=== PATIENT | male | born 1965 | race Caucasian/White ===

== ENCOUNTER 2020-09-10 06:27 | Outpatient (REF) | payer OTHER, SELFPAY ==
[2020-09-10 07:26] LABS: MANUAL DIFF FLAG NO
[2020-09-10 07:42] LABS: Basophils Percent Auto 0.7 % (0-2); Eosinophils Absolute Auto 0.2 X10*3/uL (0.0-0.4); Eosinophils Percent Auto 3.5 % (0-4); Hematocrit 46.2 % (42-52); Hemoglobin 15.7 g/dl (14.0-18.0); Imm Gran Abs Auto 0.01 X10*3/uL (0.00-0.03); Imm Gran Pct Auto 0.2 % (0.0-0.4); Lymphocytes Absolute Auto 1.9 X10*3/uL (1.2-4.9); Lymphocytes Percent Auto 34.9 % (20-40); Mean Corpuscular Hemoglobin 31.9 pg (27.0-33.0); Mean Corpuscular Volume 93.9 fL (80-98); Mean Platelet Volume 9.7 fL (9.4-12.4); Monocytes Absolute Auto 0.8 X10*3/uL (0.1-1.2); Monocytes Percent Auto 13.9 % (2-11); Neutrophils Absolute Auto 2.6 X10*3/uL (2.0-8.3); Neutrophils Percent Auto 46.8 % (45-73); Platelet Count 315 X10*3/uL (160-400); Red Blood Count 4.92 X10*6/uL (4.60-5.80); Red Cell Distribution Width 11.9 % (11.0-16.0); White Blood Count 5.5 X10*3/uL (4.8-10.8)
[2020-09-10 08:03] LABS: Alanine Aminotransferase 36 U/L (0-40); Albumin Level 4.4 g/dL (3.5-5.0); Alkaline Phosphatase 79 U/L (39-117); Anion Gap 12 (12-20); Aspartate Amino Transferase 24 U/L (5-37); Bilirubin Total 0.6 mg/dL (0.0-1.0); Blood Urea Nitrogen 15 mg/dL (9-16); Calcium 9.3 mg/dL (8.4-10.2); Carbon Dioxide 29 mmol/L (22-29); Chloride 102 mmol/L (96-108); Cholesterol 227 mg/dL; Estimated Glomerular Filt Rate > 60; Glucose Fasting 96 mg/dL (60-99); HDL Cholesterol 46 mg/dL; LDL Cholesterol Calculated 164 mg/dl; Sodium 138 mmol/L (135-145); Total Protein 7.8 g/dL (6.5-8.0); Triglycerides 87 mg/dL
[2020-09-10 08:23] LABS: TSH reflex Free T4 3.42 mIU/mL (0.32-4.0)
[2020-09-10 08:47] LABS: Estimated Average Glucose 108 mg/dL; Hemoglobin A1c % 5.4 %
[2020-09-10 10:08] LABS: SARS COV2 IgG Negative (Negative)
== END 2020-09-10 06:28 | disposition home or self-care (01) ==
LOC: HO.LAB 06:27
PROVIDERS: Visit Provider Physician Assistant
DX: Z20.822 Contact with and (suspected) exposure to COVID-19 (principal)
CPT/HCPCS: 36415; 80053; 80061; 83036; 84443; 85025; 86769

== ENCOUNTER → 2021-09-08 13:22 | Outpatient (BNVA) | payer OTHER, SELFPAY | PROVIDERS: PCP Physician Assistant; Visit Provider Physician Assistant | DX: S49.82XA Other specified injuries of left shoulder and upper arm, initial encounter (principal); W18.30XA Fall on same level, unspecified, initial encounter | CPT/HCPCS: 99203 ==

== ENCOUNTER → 2021-09-14 10:35 | Outpatient (BNVA) | payer OTHER, SELFPAY | PROVIDERS: PCP Physician Assistant; Visit Provider Physician Assistant Medical | DX: S46.912A Strain of unspecified muscle, fascia and tendon at shoulder and upper arm level, left arm, initial encounter (principal); W18.30XA Fall on same level, unspecified, initial encounter; Z96.642 Presence of left artificial hip joint | CPT/HCPCS: 73030; 99203 ==

== ENCOUNTER → 2021-09-20 11:06 | Outpatient (BNVA) | payer OTHER, SELFPAY | PROVIDERS: PCP Physician Assistant; Visit Provider Physician Assistant Medical | DX: S46.212A Strain of muscle, fascia and tendon of other parts of biceps, left arm, initial encounter (principal); W18.30XA Fall on same level, unspecified, initial encounter | CPT/HCPCS: 99213 ==

== ENCOUNTER 2021-10-01 08:33 | Outpatient (REF) | payer OTHER, SELFPAY ==
--- NOTE | ~2021-10-01 | MR_ITS ---
EXAMINATION: MRI LEFT SHOULDER WITHOUT CONTRAST CLINICAL INFORMATION: Lifting injury. Assess biceps tendon. COMPARISON: Radiographs 09/14/2021. TECHNIQUE: MRI of the shoulder without contrast is performed on a 1.5 Ghislaine high-field scanner. FINDINGS: ROTATOR CUFF: Full-thickness tearing involves the majority of the supraspinatus tendon with some posteriormost fibers remaining intact. Portions of the tendon anteriorly are retracted to the level of the humeral head apex. Infraspinatus tendinosis. There is interstitial and bursal surface partial tearing of the distal subscapularis tendon. No muscle atrophy or fatty infiltration. BICEPS: Longitudinal partial tearing of the proximal biceps tendon as it drapes over the lesser tuberosity. CORACOACROMIAL ARCH: The undersurface of the acromion is curved with mild lateral subacromial spurring. Mild hypertrophic acromioclavicular osteoarthritis. LABRUM/CAPSULE: Ill-defined degenerative undersurface partial tearing of the posterior superior labrum. GLENOHUMERAL JOINT/MARROW: Moderate glenohumeral joint effusion with synovitis and debris extending into the subcoracoid bursa and biceps tendon sheath. Degenerative spurring along the greater tuberosity. ADDITIONAL FINDINGS: None. MR/MR shoulder LT wo con IMPRESSION: Near-complete tearing of the supraspinatus tendon as described. Interstitial/bursal surface partial tearing of the distal subscapularis tendon. A narrow coracohumeral distance may indicate subcoracoid impingement. Il-defined undersurface partial tearing of the proximal biceps tendon. Ill-defined degenerative undersurface tearing of the posterior superior labrum. Moderate joint effusion with mild synovitis/debris.
== END 2021-10-01 08:34 | disposition home or self-care (01) ==
LOC: HO.MRI 08:33
PROVIDERS: Visit Provider Internal Medicine
DX: M25.512 Pain in left shoulder (principal)
CPT/HCPCS: 73221

== ENCOUNTER 2021-10-04 11:00 | Outpatient (RCR) | payer OTHER, SELFPAY ==
--- NOTE | 2021-09-27 18:31 | MHC.PT.EP ---
[facility] [place] [facility] [place] [facility] [place] [facility] [address] Shaka Espinoza [address] [phone] F: [phone] F: [phone] F: [phone] F: [phone] Physical Therapy Plan of Care Date of Evaluation: Date of Surgery: N/A Diagnosis: L biceps injury Assessment: Pt is a 55yo M who presents to PT s/p falling on ice 09/08/21. Xrays are negative for fracture, and he is scheduled for an MRI this Monday. He presents today with current impairments in pain, decreased L shoulder ROM, and impaired posture. He continues to have good strength throughout L shoulder however it is slightly decreased compared to his R. He had a (+) Speed's on L UE. He is limited functionally by reaching, lifting, and overhead ADLs. He is a good candidate for skilled PT services in order to address current impairments in order to facilitate return to PLOF. 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 Manual therapy to restore motion and function. Therapeutic exercise to improve strength and flexibility. Neuromuscular re-education for posture and balance. Therapeutic activities to return to functional activities of daily living. Electronically signed by: Humaira Moran, PT, DPT Please sign and return to therapist. Thank you for your referral.
--- NOTE | 2021-10-11 10:27 | MHC.PT.DC ---
[facility] [place] [facility] [place] [facility] [place] [facility] [address] Shaka Espinoza [address] [phone] F: [phone] F: [phone] F: [phone] F: [phone] Physical Therapy Discharge Report Diagnosis: L biceps injury Date of Surgery: N/A Date of Evaluation: 09/27/21 Date of Discharge: 10/11/21 Treatments to Date: 3 Cancellations to Date: No Shows to Date: Discharge Status: Patient Elected to Stop Discharge Summary: Pt attended PT from 09/27/21-10/04/21. Pt had MRI of L shoulder which revealed tear of supraspintatus, subscap, and proximal biceps tendon. Pt had appointment with work connection on 10/05/21. [facility] connection called [facility] receptionist scheduler and reported pt is getting surgery on L shoulder. Pt is being D/C from skilled PT at this time. Electronically signed by: Humaira Moran, PT, DPT Please sign and return to therapist. Thank you for your referral.
== END 2021-10-11 10:27 | disposition home or self-care (01) ==
LOC: HO.PT 11:00
PROVIDERS: PCP Physician Assistant; Visit Provider Physician Assistant Medical
DX: S46.202D Unspecified injury of muscle, fascia and tendon of other parts of biceps, left arm, subsequent encounter (principal)
CPT/HCPCS: 97110; 97162

== ENCOUNTER → 2021-10-05 10:36 | Outpatient (BNVA) | payer OTHER, SELFPAY | PROVIDERS: PCP Physician Assistant; Visit Provider Physician Assistant Medical | DX: S46.212D Strain of muscle, fascia and tendon of other parts of biceps, left arm, subsequent encounter (principal); X58.XXXD Exposure to other specified factors, subsequent encounter | CPT/HCPCS: 99213 ==

== ENCOUNTER 2022-02-09 06:33 | Day surgery (SDC) | payer OTHER, SELFPAY ==
[2022-02-04 10:16] VITALS: BMI 32.9
--- NOTE | 2022-02-08 11:58 | HO.ANESPROP2 ---
Documented by User: Roseanne Mary NP 02/08/22 11:58 HPI - Anesthesia Eval Consult details Narrative: 56yo M for Colonoscopy [facility] Active Problems Active Problems: All Active Problems (Updated 02/04/22 @ 10:14 by Safia Cox, RN) Screening for diabetes mellitus (DM) (Acute) Screening for hypothyroidism (Acute) Screening for hypercholesterolemia (Acute) Exposure to COVID-19 virus (Acute) Past Medical History Medical History (Updated 02/04/22 @ 10:14 by Safia Cox RN) Elevated cholesterol History of diverticulitis Family History Family History (Updated 06/10/20 @ 09:22 by RONALD Hager) Father Colon cancer CVD (cardiovascular disease) Myocardial infarction S/P triple vessel bypass Mother History of breast cancer Brother Myocardial infarction Surgical History Surgical History (Updated 02/04/22 @ 10:16 by Safia Cox RN) History of nasal surgery History of repair of left rotator cuff History of total right hip replacement Hx of colonoscopy Hx of rectal polypectomy Social History Social History Patient Tobacco Use Status: Never used Tobacco Are you DNR?: No Advance Directives: No Advance Directives Information Provided: Yes Meds Allergies Allergy/AdvReac Type Severity Reaction Status Date / Time No Known Allergies Allergy Mild NOT Verified 02/04/22 10:16 APPLICABLE Home Medications Medication Instructions Recorded Confirmed Last Taken Type No Known Home Meds 02/04/22 02/04/22 Unknown History Exam Exam Date and Time: February 08, 2022 1158 Height,Weight and Vital Signs: Height 5 ft 11.6 in Weight 108.862 kg Assessment and Plan Assessment Anesthesia Assessment: Chart Reviewed Documented by User: Cheryl Ballard MD 02/09/22 07:19 [facility] Past Medical History Medical History (Updated 02/04/22 @ 10:14 by Safia Cox RN) Elevated cholesterol History of diverticulitis Family History Family History (Updated 06/10/20 @ 09:22 by RONALD Hager) Father Colon cancer CVD (cardiovascular disease) Myocardial infarction S/P triple vessel bypass Mother History of breast cancer Brother Myocardial infarction Family history of problems with anesthesia: No Surgical History Surgical History (Updated 02/04/22 @ 10:16 by Safia Cox RN) History of nasal surgery History of repair of left rotator cuff History of total right hip replacement Hx of colonoscopy Hx of rectal polypectomy History of Problems with Anesthesia: No Social History Social History Patient Tobacco Use Status: Never used Tobacco Are you DNR?: No Advance Directives: No Advance Directives Information Provided: Yes Meds Allergies Allergy/AdvReac Type Severity Reaction Status Date / Time No Known Allergies Allergy Mild NOT Verified 02/04/22 10:16 APPLICABLE Home Medications Medication Instructions Recorded Confirmed Last Taken Type No Known Home Meds 02/04/22 02/04/22 Unknown History Exam Airway Mallampati Class: II TM Dist: >3cm Neck ROM: Full Assessment and Plan Assessment Anesthesia Assessment: Anesthesia Plan Discussed Final Anesthetic Review Family History of Problems with Anesthesia: No History of Problems with Anesthesia: No NPO: Yes ASA Class: II Final Preanesthetic Review: No Changes in Pt Med Stat, Meds/Allgs Chart Reviewed, Consent Obtained/Reviewed and Anes Risks/Benef Reviewed Patient Risk: Low Procedure Risk: Low Anesthetic Plan Anesthetic Plan: MAC: Disposition: Standard PACU
[2022-02-09 07:06] VITALS: BP 154/96; PULSE 77; RESP 18; TEMP 36.1; O2SAT 97
[2022-02-09] MEDS: Lactated Ringers 1,000 ML 100 ML IVCONT (07:11)
[2022-02-09 08:30] VITALS: BP 162/95; PULSE 85; RESP 16; TEMP 36.1; O2SAT 96
--- NOTE | 2022-02-09 08:33 | P.BOP_ITS ---
Brief Operative Note Date of Service: 02/09/22 Pre-op diagnosis: Screening Post-op diagnosis: other (Colon polyps) Procedure: Colonoscopy to the cecum with hot snare polypectomy x 2 Surgeon: Jude Carson Anesthesia: MAC Was an Production Line Technician used for this Procedure?: No Estimated blood loss (mL): 0 Pathology: other (A. Transverse colon polyp B. Polyp at 30cm) Condition: stable Disposition: PACU
[2022-02-09 08:45] VITALS: BP 157/98; PULSE 82; RESP 20; TEMP 36.4; O2SAT 97
--- NOTE | 2022-02-09 10:39 | OP_ITS ---
SURGEON: Jude Carson MD INDICATIONS: The patient presents for evaluation of colorectal cancer screening and personal history of tubular adenoma of the colon. Full consent was obtained from him for this, including risks of bleeding and perforation. PREOPERATIVE DIAGNOSIS: POSTOPERATIVE DIAGNOSIS: PROCEDURE PERFORMED: Colonoscopy to the cecum with hot snare polypectomy. ESTIMATED BLOOD LOSS: COMPLICATIONS: ANESTHESIA: Monitored anesthesia care. ASSISTANTS: SPECIMENS: PREOPERATIVE DIAGNOSES: Colorectal cancer screening and personal history of tubular adenoma of the colon. POSTOPERATIVE DIAGNOSES: Colorectal cancer screening and personal history of tubular adenoma of the colon, colon polyps, diverticulosis, and internal hemorrhoids. DESCRIPTION OF PROCEDURE: The patient was placed in the left lateral decubitus position. The digital rectal exam revealed no abnormalities. The Olympus video pediatric colonoscope was entered into the rectum and advanced easily to the cecum. Once in the cecum, I did identify normal-appearing cecal pouch with appendiceal orifice and a normal-appearing ileocecal valve. The terminal ileum was cannulated and appeared normal. The scope was slowly withdrawn assessing all mucosal surfaces carefully. Preparation was excellent. In the transverse colon was an approximately 8-10 mm polyp, which was removed by hot snare polypectomy and recovered by suction. The polypectomy site appeared clean, without any sign of residual polyp nor bleeding. At 30 cm was an approximately 6 mm polyp, which was removed by hot snare polypectomy, recovered by suction. The polypectomy site appeared clean, without any sign of residual polyp nor bleeding. I did not visualize any other polyps, colitis, or angiodysplasia. There was a mild amount of sigmoid diverticulosis. In the rectum, scope was retroflexed visualizing internal hemorrhoids, but no other pathology. The rectal mucosa appeared normal. The scope was straightened and withdrawn from the patient. He tolerated the procedure well and was returned to recovery area in stable condition. IMPRESSION: 1. Colon polyps, status post hot snare polypectomy. 2. Diverticulosis. 3. Internal hemorrhoids. PLAN: The results of the pathology will be checked. I would recommend a repeat colonoscopy in 5 years for further surveillance. MD ALEA Elliott/SHANTEL / [id number]
== END 2022-02-09 09:07 | disposition home or self-care (01) ==
PROVIDERS: PCP Physician Assistant; Visit Provider Internal Medicine
PROC: 0DJD8ZZ Inspection of Lower Intestinal Tract, Via Natural or Artificial Opening Endoscopic (ICD-10-PCS; CPT 45378; principal; 2022-02-09 07:30)
DX: Z12.11 Encounter for screening for malignant neoplasm of colon (principal); Z86.010 Personal history of colon polyps; D12.3 Benign neoplasm of transverse colon; K63.5 Polyp of colon; K57.30 Diverticulosis of large intestine without perforation or abscess without bleeding; K64.8 Other hemorrhoids; Z87.19 Personal history of other diseases of the digestive system; Z96.641 Presence of right artificial hip joint
CPT/HCPCS: 45385; 88305

== ENCOUNTER 2022-06-21 12:44 | Emergency (ER) | payer OTHER, SELFPAY ==
--- NOTE | ~2022-06-21 | XR_ITS ---
EXAMINATION: XR CHEST CLINICAL INFORMATION: Chest pain. COMPARISON: 05/16/2019 chest and rib radiographs. TECHNIQUE: 2 views of the chest were obtained. FINDINGS: No significant abnormality is noted involving the heart, lungs, mediastinum, bony thorax or soft tissues. XR/XR chest 2V IMPRESSION: No acute cardiopulmonary process.
[2022-06-21 12:58] VITALS: BP 152/95; PULSE 82; RESP 18; TEMP 36.6; O2SAT 98; BMI 31.8
--- NOTE | 2022-06-21 13:03 | ECG_ITS ---
Test Reason : CHEST PAIN Blood Pressure : / mmHG Vent. Rate : 075 BPM Atrial Rate : 075 BPM P-R Int : 162 ms QRS Dur : 102 ms QT Int : 396 ms P-R-T Axes : 029 -09 029 degrees QTc Int : 442 ms Normal sinus rhythm Intra-ventricular conduction delay late transition in precordial leads Abnormal ECG When compared with ECG of 12-JAN-2016 15:33, late transition of precordial leads Referred By: Generic ED Physician Electronically Signed By:GLENNA MCFADDEN MD
[2022-06-21 13:15] LABS: MANUAL DIFF FLAG NO
[2022-06-21 13:19] LABS: Basophils Absolute Auto 0.1 X10*3/uL (0.0-0.2); Basophils Percent Auto 0.9 % (0-2); Eosinophils Absolute Auto 0.1 X10*3/uL (0.0-0.4); Eosinophils Percent Auto 1.6 % (0-4); Hematocrit 47.2 % (42.0-52.0); Hemoglobin 16.7 g/dl (14.0-18.0); Imm Gran Abs Auto 0.02 X10*3/uL (0.00-0.03); Imm Gran Pct Auto 0.2 % (0.0-0.4); Lymphocytes Absolute Auto 2.3 X10*3/uL (1.2-4.9); Lymphocytes Percent Auto 26.6 % (20-40); Mean Corpuscular HGB Conc 35.4 g/dl (31.0-36.0); Mean Corpuscular Hemoglobin 32.6 pg (27.0-33.0); Mean Corpuscular Volume 92.2 fL (80.0-98.0); Mean Platelet Volume 9.2 fL (9.4-12.4); Monocytes Percent Auto 11.2 % (2-11); Neutrophils Absolute Auto 5.1 x10*3/uL (2.0-8.3); Neutrophils Percent Auto 59.5 % (45-73); Platelet Count 352 X10*3/uL (160-400); Red Blood Count 5.12 X10*6/uL (4.60-5.80); Red Cell Distribution Width 12.5 % (11.0-16.0); White Blood Count 8.5 X10*3/uL (4.8-10.8)
[2022-06-21 13:33] LABS: Anion Gap 17 (12-20); Blood Urea Nitrogen 18 mg/dL (9-16); Calcium 9.1 mg/dL (8.4-10.2); Carbon Dioxide 23 mmol/L (22-29); Chloride 103 mmol/L (96-108); Creatinine Clr Calc Pharmacy 109.2; Estimated Glomerular Filt Rate > 60; Glucose Random 101 mg/dL (60-115); Potassium 4.5 mmol/L (3.3-5.1); Sodium 138 mmol/L (135-145)
[2022-06-21 13:40] LABS: Troponin-I High Sensitivity < 3.5 ng/L (<3.5-35.0)
== END 2022-06-21 15:32 | disposition left against medical advice (07) ==
PROVIDERS: Emergency Provider Emergency Medicine; PCP Physician Assistant
DX: R07.89 Other chest pain (principal); Z79.899 Other long term (current) drug therapy
CPT/HCPCS: 36415; 71046; 80048; 84484; 85025; 93005; 99283

== ENCOUNTER 2022-09-06 12:00 | Outpatient (RCR) | payer OTHER, SELFPAY | END 2022-09-15 11:11 | disposition home or self-care (01) | LOC: HO.PT 12:00 | PROVIDERS: PCP Physician Assistant; Visit Provider Orthopaedic Surgery | DX: M75.41 Impingement syndrome of right shoulder (principal); M75.21 Bicipital tendinitis, right shoulder; M75.42 Impingement syndrome of left shoulder; M75.22 Bicipital tendinitis, left shoulder | CPT/HCPCS: 97110; 97140; 97162; 97530 ==

== ENCOUNTER 2024-04-09 14:35 | Outpatient (AMB) | payer OTHER, SELFPAY ==
--- NOTE | 2024-04-09 14:49 | MHC.PC.OV ---
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 Required: No Accompanied by: Self / Same As Patient Allergies No Known Allergies Allergy (Mild, Verified 04/09/24 15:24) NOT APPLICABLE Medication List - Last Reconciled 04/09/24 by Samm Licona PA-C No Known Home Meds Tobacco use date assessed: 04/09/24 Dental Screening Dental Screen Date: 04/09/24 Did you have a dental visit in the last 12 months?: Yes Did you have a dental problem in the last 6 months where you did not have access to dental care?: No Was dental information given to patient?: Patient has dentist HPI Re-Establish Care/General health-resched from 02/19 HPI Details Patient is a 58-year-old male here today for a new patient reestablishing care visit. Patient has a past medical history significant for obesity and borderline high cholesterol. He does report a family history of coronary artery disease. Of note blood pressure today in office has been elevated and has been at previous office visits. He does admits to having a sedentary lifestyle and dietary indiscretion.. He is not interested in starting medication for cholesterol or blood pressure at this time would like to works particularly on his diet and physical activity to reduce his weight thus reducing his blood pressure.. Of note did suffer a traumatic left rotator tear that was work related due to a fall. Now on worker's comp and currently not working. He has been more inactive as of late Laboratory Tests 09/10/20 06:45 Cholesterol 227 LDL Cholesterol, C alc 164 [facility] Medical History (Updated 04/09/24 @ 15:36 by Samm Licona PA-C) History of diverticulitis Elevated cholesterol Surgical History Hx of rectal polypectomy History of repair of left rotator cuff History of nasal surgery Hx of colonoscopy History of total right hip replacement Family History Father Colon cancer CVD (cardiovascular disease) Myocardial infarction S/P triple vessel bypass Mother History of breast cancer Brother Myocardial infarction Social History Housing: House Patient Tobacco Use Status: Never used Tobacco e-Cigarette/Vaping Use: Never Used service: No Current occupational status: employed Cognitive needs: No Hearing needs: No Vision needs: No Questionnaire PHQ-9 Over the last 2 weeks, how often have you been bothered by any of the following problems? 1. Little interest or pleasure in doing things: not at all 2. Feeling down, depressed, or hopeless: not at all 3. Trouble falling or staying asleep, or sleeping too much: not at all 4. Feeling tired or having little energy: not at all 5. Poor appetite or overeating: not at all 6. Feeling bad about yourself - or that you are a failure or have let yourself or your family down: not at all 7. Trouble concentrating on things, such as reading the newspaper or watching television: not at all 8. Moving or speaking so slowly that other people could have noticed. Or the opposite - being so fidgety or restless that you have been moving around a lot more than usual: not at all 9. Thoughts that you would be better off or of hurting yourself in some way: not at all Total score: 0 Depression Screening Interpretation: Negative Depression Screening Done: Yes 63752 - PHQ-9 Billing: Yes Source: Developed by Drs. Jude Serrato, Ida Vela, Akira Pickens and colleagues, with an educational belle from [employer]. Thrive Questionnaire Date Thrive assessed: 04/09/24 I am a: Patient What is your living situation today?: I have a steady place to live Within the past 12 months, did the food you bought not last and you didn't have the money to get more?: Never true Within the past 12 months, did you worry whether your food would run out before you got money to buy more?: Never true Do you have trouble paying for medicines?: No Do you have trouble getting transportation to medical appointments?: No Do you have trouble paying your heating and electricity bill?: No Do you have trouble taking care of your child, family member or friend?: No Do you have trouble with day-to-day activities such as bathing, preparing meals, shopping, managing finances, etc.?: No Are you currently unemployed and looking for a job?: No Are you interested in more education?: No Please select the resources that you would like help with: Housing/Assisted Currently or been in a relationship where the following occur: No concerns reported THRIVE Score: 0 AUDIT C Alcohol Use Questionnaire (AUDIT-C) 1. How often do you have a drink containing alcohol?: 2-3 times a week 2. How many drinks containing alcohol do you have on a typical day when you are drinking?: 3 or 4 3. How often do you have six or more drinks on one occasion?: Less than monthly Total Score: 5 Score Reviewed/Action Taken: Yes CHANG-7 AMB Questionnaire CHANG-7 Date CHANG - 7 assessed: 04/09/24 Feeling nervous, anxious, or on edge: 0 = Not at all Not being able to stop or control worryin = Not at all Worrying too much about different things: 0 = Not at all Trouble relaxin = Not at all Being so restless that it is hard to sit still: 0 = Not at all Becoming easily annoyed or irritable: 0 = Not at all Feeling afraid as if something awful might happen: 0 = Not at all Total CHANG-7 score (0-4 normal; 5-9 mild; 10-14 moderate; 15-21 severe): 0 Source: Developed by Drs. Jude Serrato, Ida Vela, Akira Pickens and colleagues, with an educational belle from [employer]. CHANG-7 Assessment Billing CHANG-7 Assessment Tool: CHANG-7 Assessment 58320 Review of Systems Const Denies headache(s) Eyes Denies loss of vision ENT Denies vertigo, Denies dizziness, Denies headache(s) and Denies sore throat Card Denies chest pain, Denies leg edema and Denies lightheadedness Resp Denies cough, Denies hemoptysis and Denies wheezing GI Denies abdominal pain, Denies melena, Denies constipation, Denies diarrhea and Denies vomiting Denies dysuria, Denies urinary frequency and Denies urinary urgency Musc Denies arthralgias, Denies joint swelling, Denies numbness and Denies tingling Neuro Denies Abnormal speech present, Denies behavioral changes, Denies vertigo, Denies dizziness, Denies headache(s), Denies loss of vision, Denies memory loss, Denies numbness and Denies tingling Psych Denies anxiety, Denies behavioral changes, Denies depression, Denies memory loss and Denies panic attacks Ace/Lymph Denies easy bleeding and Denies easy bruising Aller/Immun Denies wheezing Physical exam (Primary Care) Vital Signs: Last Vital Signs Pulse 82 04/09/24 15:00 BP 146/90 H 04/09/24 15:00 Pulse Ox 98 04/09/24 15:00 Oxygen Delivery Method Room Air 04/09/24 15:00 BMI result Body Mass Index 35.0 Tobacco/Smoking Status: Tobacco use Status Tobacco use date assessed 04/09/24 04/09/24 15:02 Patient Tobacco Use Status Never used Tobacco 04/09/24 14:50 e-Cigarette/Vaping Use Never Used 04/09/24 15:02 PHQ-9: PHQ-9 Score PHQ-9: Total score 0 04/09/24 15:27 Depression Screening Interpretation: Negative Thrive Assessment: Date of Thrive Assessment Date Thrive assessed 04/09/24 04/09/24 15:02 Currently or been in a relationship where the following occur: No concerns reported Const General: healthy appearing, no acute distress, alert and awake Nutritional Appearance: well nourished Orientation/consciousness: oriented to person, oriented to place and oriented to time HENMT Ears: TM's normal bilaterally General nose exam: Normal nasal mucous membranes and turbinates present Eyes Conjunctivae: conjunctivae normal Sclerae: sclerae normal Pupils: Equal, round and reactive pupils present Neck Neck: Yes no lymphadenopathy and Yes no JVD Thyroid: Thyroid normal Carotids: no bruits Resp Effort & Inspection: normal respiratory effort and not tachypneic Auscultation: no crackles, no rales, no rhonchi and no wheezes Cardio Rate: regular rate Rhythm: regular rhythm Heart sounds: no murmurs and normal S1 and S2 GI Palpation (GI): Soft to palpation, nontender, no hepatomegaly and no splenomegaly Auscultation: normal bowel sounds Skin General skin exam: no rashes or lesions noted and dry skin Neuro General: oriented to person, oriented to place and oriented to time Cranial nerves: Yes Equal, round and reactive pupils present Speech: No Abnormal speech present Gait exam (Neuro): Normal gait present Motor exam (neuro): no tremor noted Extrem Right upper extremity: full ROM Left upper extremity: full ROM Right lower extremity: full ROM; no edema Left lower extremity: full ROM; no edema Psych Mental Status: mental status grossly normal Speech and movement: Normal speech and movement present Affect: normal affect Attitude: cooperative Thought process: Normal thought process present Assessment and Plan Assessment & Plan (1) Borderline high cholesterol: Code(s): E78.9 - Disorder of lipoprotein metabolism, unspecified Plan: Has a history of borderline high cholesterol. Does also have family history of coronary artery disease. He will work on lifestyle modifications and dietary modifications. Goal LDL to be below 130. (2) Obese: Code(s): E66.9 - Obesity, unspecified Qualifiers: Body mass index: BMI 35.0-35.9 Obesity classification: adult class 2 (BMI 35 - 39.9) Obesity type: due to excess calories Serious obesity comorbidity presence: without serious comorbidity Qualified Code(s): E66.09 - Other obesity due to excess calories; Z68.35 - Body mass index [BMI] 35.0-35.9, adult Plan: Patient does understand his BMI is over 30 and will work on being more physically active and adapting to better eating habits to reduce his weight (3) Screening for diabetes mellitus (DM): Code(s): Z13.1 - Encounter for screening for diabetes mellitus (4) HTN (hypertension): Code(s): I10 - Essential (primary) hypertension Qualifiers: Hypertension type: primary hypertension Qualified Code(s): I10 - Essential (primary) hypertension Plan: Patient has been noted to have elevated blood pressures at recent visits in on today's visit. He denies any headaches, chest discomfort, presyncopal episodes or shortness of breath. We did discuss the possible need of starting low-dose blood pressure medication and patient does somewhat agree. He will try to monitor his blood pressure at home over the next few months. Goal blood pressures to be below 140/90 (5) Left rotator cuff tear: Code(s): M75.102 - Unspecified rotator cuff tear or rupture of left shoulder, not specified as traumatic Qualifiers: Encounter type: subsequent encounter Rotator cuff tear extent: complete Rotator cuff tear trauma status: traumatic Qualified Code(s): S46.012D - Strain of muscle(s) and tendon(s) of the rotator cuff of left shoulder, subsequent encounter Plan: As per HPI patient has not meet a full recovery from traumatic left rotator cuff tear that was work-related due to a fall at work. He is now on worker's comp been considering working again. (6) Skin lesion: Code(s): L98.9 - Disorder of the skin and subcutaneous tissue, unspecified Plan: Has multiple skin lesions likely related to sun damage. Does have family history of melanoma. Will like to establish care with Dermatology for full skin check. Orders: Orders Comprehensive [place]. Panel Fast 04/09/24 Z13.1 - Encounter for screening for diabetes mellitus Prostate Specific Antigen Scr 04/09/24 Z12.5 - Encounter for screening for malignant neoplasm of prostate, Z13.1 - Encounter for screening for diabetes mellitus Lipid Panel 04/09/24 E78.9 - Disorder of lipoprotein metabolism, unspecified Referrals Dermatology Referral L98.9 - Disorder of the skin and subcutaneous tissue, unspecified Medications: New blood pressure monitor As directed 1 ea 0RF I10 - Essential (primary) hypertension Coding Level of Care Code New Pt Level 4 (64166) Diagnoses Borderline high cholesterol E78.9 Class 2 obesity due to excess calories without serious comorbidity with body mass index (BMI) of 35.0 to 35.9 in adult E66.09; Z68.35 Body mass index: BMI 35.0-35.9 Obesity classification: adult class 2 (BMI 35 - 39.9) Obesity type: due to excess calories Serious obesity comorbidity presence: without serious comorbidity Screening for diabetes mellitus (DM) Z13.1 Primary hypertension I10 Hypertension type: primary hypertension Traumatic complete tear of left rotator cuff, subsequent encounter S46.012D Encounter type: subsequent encounter Rotator cuff tear extent: complete Rotator cuff tear trauma status: traumatic Skin lesion L98.9 Additional Codes CHANG-7 Assessment Billing - CHANG-7 Assessment Tool: CHANG-7 Assessment [id number] ([id number])
[2024-04-09 15:00] VITALS: BP 146/90; PULSE 82; O2SAT 98; BMI 35.0
== END 2024-04-09 15:46 | disposition home or self-care (01) ==
PROVIDERS: PCP Physician Assistant; Visit Provider Physician Assistant
DX: E78.9 Disorder of lipoprotein metabolism, unspecified (principal); E66.09 Other obesity due to excess calories; Z68.35 Body mass index [BMI] 35.0-35.9, adult; Z13.1 Encounter for screening for diabetes mellitus; I10 Essential (primary) hypertension; S46.012D Strain of muscle(s) and tendon(s) of the rotator cuff of left shoulder, subsequent encounter; L98.9 Disorder of the skin and subcutaneous tissue, unspecified
CPT/HCPCS: 99204

== ENCOUNTER 2024-05-22 07:17 | Outpatient (REF) | payer OTHER, SELFPAY ==
[2024-05-22 09:05] LABS: Alanine Aminotransferase 50 U/L (0-40); Albumin Level 4.2 g/dL (3.5-5.0); Alkaline Phosphatase 73 U/L (39-117); Anion Gap 9 (12-20); Aspartate Amino Transferase 38 U/L (5-37); Bilirubin Total 0.7 mg/dL (0.0-1.0); Blood Urea Nitrogen 10 mg/dL (9-16); Calcium 9.1 mg/dL (8.4-10.2); Carbon Dioxide 29 mmol/L (22-29); Chloride 105 mmol/L (96-108); Cholesterol 205 mg/dL (<200); Estimated Glomerular Filt Rate > 60; Glucose Fasting 101 mg/dL (60-99); HDL Cholesterol 40 mg/dL (>40); LDL Cholesterol Calculated 139 mg/dL (<100); Potassium 3.9 mmol/L (3.3-5.1); Sodium 139 mmol/L (135-145); Total Protein 7.9 g/dL (6.5-8.0); Triglycerides 130 mg/dL (<150)
[2024-05-22 09:24] LABS: Prostate Specific Antigen Scr 0.63 ng/mL (<0.05-4.0)
== END 2024-05-22 07:18 | disposition home or self-care (01) ==
LOC: HO.LAB 07:17
PROVIDERS: PCP Physician Assistant; Visit Provider Physician Assistant
DX: E78.9 Disorder of lipoprotein metabolism, unspecified (principal); Z13.1 Encounter for screening for diabetes mellitus; Z12.5 Encounter for screening for malignant neoplasm of prostate
CPT/HCPCS: 36415; 80053; 80061; 84153

== ENCOUNTER 2024-06-13 06:39 | Outpatient (REF) | payer OTHER, SELFPAY ==
[2024-06-13 07:47] LABS: Alanine Aminotransferase 47 U/L (0-40); Albumin Level 4.4 g/dL (3.5-5.0); Alkaline Phosphatase 83 U/L (39-117); Aspartate Amino Transferase 33 U/L (5-37); Bilirubin Direct 0.2 mg/dL (0.0-0.5); Bilirubin Total 0.7 mg/dL (0.0-1.0); Total Protein 8.2 g/dL (6.5-8.0)
== END 2024-06-13 06:40 | disposition home or self-care (01) ==
LOC: HO.LAB 06:39
PROVIDERS: PCP Physician Assistant; Visit Provider Physician Assistant
DX: R74.8 Abnormal levels of other serum enzymes (principal)
CPT/HCPCS: 36415; 80076

== ENCOUNTER 2024-07-02 07:52 | Outpatient (REF) | payer OTHER, SELFPAY | END 2024-07-02 07:53 | disposition home or self-care (01) | LOC: HO.US 07:52 | PROVIDERS: PCP Physician Assistant; Visit Provider Physician Assistant | DX: R74.8 Abnormal levels of other serum enzymes (principal) | CPT/HCPCS: 76700 ==

== ENCOUNTER 2024-07-10 09:23 | Outpatient (AMB) | payer OTHER, SELFPAY ==
--- NOTE | 2024-07-10 09:33 | MHC.PC.OV ---
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 He does report a family history of coronary artery disease. Of note blood pressure today in office has been elevated and has been at previous office visits. He does admits to having a sedentary lifestyle and dietary indiscretion.. He is now interested in starting blood pressure medication to help reduce his cardiovascular risk. Will start lisinopril 5 mg and do blood pressure monitoring consistently. Goal blood pressure to be below 140/90 Vaccine: Up-to-date with COVID vaccine, shingles vaccine, tetanus vaccine, considering flu vaccine Colorectal cancer screening: Colonoscopy done [place] [address] Carson. Polyps found tubular adenoma. Repeat 5 years Laboratory Tests 05/22/24 06/13/24 07:29 06:47 AST 38 H 33 ALT 50 H 47 H Cholesterol 205 H PSA Screen 0.63 PFSH Medical History History of diverticulitis Elevated cholesterol Surgical History Hx of rectal polypectomy History of repair of left rotator cuff History of nasal surgery Hx of colonoscopy History of total right hip replacement Family History (Updated 07/10/24 @ 09:43 by Samm Licona PA-C) Father Colon cancer CVD (cardiovascular disease) Myocardial infarction S/P triple vessel bypass Prostate cancer Mother History of breast cancer Brother Myocardial infarction Social History (Updated 07/10/24 @ 09:44 by Samm Licona PA-C) Housing: House Alcohol intake: current Alcohol intake frequency: a few times a week Alcohol type: beer Patient Tobacco Use Status: Never used Tobacco e-Cigarette/Vaping Use: Never Used service: No Current occupational status: employed Cognitive needs: No Hearing needs: No Vision needs: No Questionnaire Thrive Questionnaire Date Thrive assessed: 04/09/24 I am a: Patient What is your living situation today?: I have a steady place to live Within the past 12 months, did the food you bought not last and you didn't have the money to get more?: Never true Within the past 12 months, did you worry whether your food would run out before you got money to buy more?: Never true Do you have trouble paying for medicines?: No Do you have trouble getting transportation to medical appointments?: No Do you have trouble paying your heating and electricity bill?: No Do you have trouble taking care of your child, family member or friend?: No Do you have trouble with day-to-day activities such as bathing, preparing meals, shopping, managing finances, etc.?: No Are you currently unemployed and looking for a job?: No Are you interested in more education?: No Please select the resources that you would like help with: None Currently or been in a relationship where the following occur: No concerns reported THRIVE Score: 0 CHANG-7 AMB Questionnaire CHANG-7 Date CHANG - 7 assessed: 04/09/24 Source: Developed by Drs. Jude Serrato, Ida Veal, Akira Pickens and colleagues, with an educational belle from [employer]. Review of Systems Const Denies body aches, Denies chills, Denies excessive sweating, Denies fatigue, Denies fever(s) and Denies headache(s) Eyes Denies blurry vision ENT Denies dysphagia, Denies vertigo, Denies dizziness, Denies headache(s), Denies hearing loss and Denies tinnitus Card Denies chest pain, Denies chest pain with activity, Denies syncope, Denies irregular heart rhythm and Denies dyspnea Resp Denies chest congestion, Denies cough, Denies hemoptysis, Denies dyspnea and Denies wheezing GI Denies abdominal pain, Denies melena, Denies hematochezia, Denies coffee ground emesis, Denies dysphagia, Denies diarrhea, Denies nausea and Denies vomiting Denies difficulty urinating, Denies dysuria, Denies urinary frequency, Denies urinary hesitancy and Denies urinary urgency Musc Denies arthralgias, Denies limited range of motion, Denies muscle cramps and Denies muscle weakness Skin/Breast Denies rash and Denies skin ulcer Neuro Denies Abnormal speech present, Denies confusion, Denies vertigo, Denies dizziness, Denies syncope, Denies headache(s), Denies memory loss and Denies seizure-like activity Psych Denies anxiety, Denies confusion, Denies depression, Denies memory loss, Denies panic attacks and Denies paranoia Endo Denies excessive sweating, Denies fatigue, Denies flushing, Denies polydipsia and Denies polyuria Aller/Immun Denies wheezing Physical exam (Primary Care) Vital Signs: Last Vital Signs BP 150/90 H 07/10/24 09:34 BMI result Body Mass Index 33.5 BMI Assessment/Plan discussion: High BMI High, discussed plan: lifestyle, weight reduction, dietary and physical activity Tobacco/Smoking Status: Tobacco use Status Tobacco use date assessed 04/09/24 07/10/24 09:35 Patient Tobacco Use Status Never used Tobacco 07/10/24 09:35 e-Cigarette/Vaping Use Never Used 07/10/24 09:35 Thrive Assessment: Date of Thrive Assessment Date Thrive assessed 04/09/24 07/10/24 09:35 Currently or been in a relationship where the following occur: No concerns reported Const General: cooperative, comfortable, no acute distress, alert and awake; No confusion Orientation/consciousness: oriented to person, oriented to place, patient oriented x3 and No confusion HENMT Head: Yes normocephalic Ears: external ears normal and TM's normal bilaterally Face and sinus: No sinus tenderness Mouth: Normal oral and palatal mucosa present and tongue normal Teeth and gingiva: dentition normal and gingiva normal Throat: Yes posterior oropharynx normal, Yes tonsils normal and Yes uvula midline Eyes Conjunctivae: conjunctivae normal Sclerae: sclerae normal Pupils: Equal, round and reactive pupils present EOM: EOMs intact bilaterally Direct Ophthalmoscopy: No no photophobia Neck Neck: Yes no lymphadenopathy, No tender and Yes no JVD Thyroid: Thyroid normal Carotids: no bruits Chest Chest palpation & inspection: no tenderness Resp Effort & Inspection: normal respiratory effort, no audible wheezes, not labored and no stridor Auscultation: no crackles, no rales, no rhonchi and no wheezes Cardio Jugular venous distension: no JVD Rate: regular rate, not bradycardic and not tachycardic Rhythm: regular rhythm Bruits: no carotid bruits Peripheral pulses: Peripheral pulses 2+ throughout GI Inspection: Yes normal to inspection, No abdominal wall ecchymosis and No visible herniation Palpation (GI): Soft to palpation, nontender, no guarding, not rigid and No hepatosplenomegaly present Auscultation: normoactive bowel sounds General: Yes no CVA tenderness Back/Spine/Pelvis Back: no CVA tenderness and No back tenderness Cervical Spine: cervical ROM normal Thoracic/Lumbar Spine: thoracic and lumbar spine normal to inspection, straight leg raise negative bilaterally, No thoraco-lumbar ROM limited and No lumbar spinal tenderness Skin Lesions: no lesions Rashes: no rashes Wounds: no wounds Neuro General: oriented to person, oriented to place, patient oriented x3, CN's II-XI intact bilaterally and No confusion Cranial nerves: Yes Equal, round and reactive pupils present and Yes Normal accommodation reflex present Cognition (Neuro): normal cognition Speech: No Abnormal speech present Gait exam (Neuro): Normal gait present Motor exam (neuro): 5/5 motor strength present throughout Extrem Right upper extremity: full ROM; no cyanosis Left upper extremity: full ROM; no cyanosis Right lower extremity: no edema Left lower extremity: no edema Psych Appearance: grossly normal Mental Status: mental status grossly normal Affect: normal affect Attitude: cooperative Thought process: Normal thought process present Office Procedures Flu Questionnaire Does the patient have a severe egg allergy?: No Does the patient have severe life threatening allergies?: No Does the patient have a fever or illness today?: No Has the patient ever had Guillain-[place] Syndrome?: No Has the patient ever had any past reaction to a flu shot?: No Immunizations Fluarix Triv [id number] (PF) 45 mcg (15 mcg x 3)/0.5 mL IM syringe Performing Provider: Samm Licona PA-C Performing Location: [facility] [place] [facility] [place] [facility] Administered by: USMAN Blackman on 07/10/24 09:35 Dose Route Admin Location Dispensed Lot Number Expiration Date NDC Pecan Gathere[employer] 0.5 mL IM Right Deltoid 0.5 mL [id number] 03/03/25 [id number] Evalve VIS Given Date VIS Provided VIS Publication Date 07/10/24 Single Vaccine 21 Eligibility Eligibility Date Funding Source Not [facility] Eligible 07/10/24 Private Coding Level of Care Code Est Pt Prev Care 40-64y([id number]) Diagnoses Annual physical exam Z00.00 Primary hypertension I10 Hypertension type: primary hypertension Other male erectile dysfunction N52.8 Erectile dysfunction type: due to other cause Elevated liver enzymes R74.8 Borderline high cholesterol E78.9 Class 1 obesity E66.811 Assessment & Plan Assessment & Plan (1) Annual physical exam: Code(s): Z00.00 - Encounter for general adult medical examination without abnormal findings Category: Medical Plan: As per HPI (2) HTN (hypertension): Code(s): I10 - Essential (primary) hypertension Category: Medical Qualifiers: Hypertension type: primary hypertension Qualified Code(s): I10 - Essential (primary) hypertension Plan: Patient's blood pressure remains elevated today in office. He is now willing to start blood pressure medication. Thus will start 5 mg lisinopril with goal blood pressure to be below 140/90. He will continue working on lifestyle and dietary modifications. (3) Erectile dysfunction: Code(s): N52.9 - Male erectile dysfunction, unspecified Category: Medical Qualifiers: Erectile dysfunction type: due to other cause Qualified Code(s): N52.8 - Other male erectile dysfunction Plan: Willing to try tadalafil before sexual activity. (4) Elevated liver enzymes: Code(s): R74.8 - Abnormal levels of other serum enzymes Category: Medical Plan: Noted slightly elevated liver enzymes though when recheck has gotten better. Did work on reducing his weight and reducing his alcohol intake which likely has helped. Does have an ultrasound of his abdomen and waiting radiologist read out. (5) Borderline high cholesterol: Code(s): E78.9 - Disorder of lipoprotein metabolism, unspecified Category: Medical Plan: Patient's most recent lipid panel showing borderline high total cholesterol. He will continue working on lifestyle and dietary modifications to reduce his cholesterol. Goal total cholesterol to be below 200. (6) Class 1 obesity: Code(s): E66.811 - Obesity, class 1 Category: Medical Plan: Patient does understand his BMI is over 30 will continue working on lifestyle and dietary modifications. He mentions getting a plan to finish membership to start working out consistently. Orders: Orders Influenza [id number] Immunization Today Z23 - Encounter for immunization Comprehensive [place]. Panel Fast Today I10 - Essential (primary) hypertension Complete Blood Count no Diff Today I10 - Essential (primary) hypertension Lipid Panel Today E78.9 - Disorder of lipoprotein metabolism, unspecified Microalbumin, Random (w Creat) Today I10 - Essential (primary) hypertension Medications: New lisinopril 5 mg PO DAILY 30 days 30 tabs 1RF I10 - Essential (primary) hypertension tadalafil administer approximately 30min before sexual activity; do not use more than 1 dose per 24hrs 20 mg PO DAILY 7 days PRN 7 tabs 0RF sexual activity N52.8 - Other male erectile dysfunction Patient Instructions: :Goal: Blood pressure to be below 140/90 Barriers: Adherence to physical activity and healthy eating habits
[2024-07-10 09:34] VITALS: BP 150/90; PULSE 84; O2SAT 96; BMI 33.5
== END 2024-07-10 10:01 | disposition home or self-care (01) ==
LOC: HO.HMCH 09:24
PROVIDERS: PCP Physician Assistant; Visit Provider Physician Assistant
DX: Z00.00 Encounter for general adult medical examination without abnormal findings (principal); I10 Essential (primary) hypertension; E66.811 Obesity, class 1; Z68.33 Body mass index [BMI] 33.0-33.9, adult; N52.8 Other male erectile dysfunction; R74.8 Abnormal levels of other serum enzymes; E78.9 Disorder of lipoprotein metabolism, unspecified

== ENCOUNTER → 2024-07-10 09:23 | Outpatient (BNVA) | payer OTHER, SELFPAY | PROVIDERS: PCP Physician Assistant; Visit Provider Physician Assistant | DX: Z00.00 Encounter for general adult medical examination without abnormal findings (principal); Z23 Encounter for immunization; I10 Essential (primary) hypertension; N52.8 Other male erectile dysfunction; R74.8 Abnormal levels of other serum enzymes; E78.9 Disorder of lipoprotein metabolism, unspecified; E66.811 Obesity, class 1; Z68.33 Body mass index [BMI] 33.0-33.9, adult; Z71.3 Dietary counseling and surveillance | CPT/HCPCS: 90471; 90656; 99396 ==

== ENCOUNTER 2024-10-03 10:40 | Outpatient (AMB) | payer OTHER, SELFPAY ==
--- NOTE | 2024-10-03 10:42 | A.OFFPC_ITS ---
Vital Signs 10/03/24 10:43 Height 6 ft Weight 253 lb 6 oz BMI 34.4 BP 140/80 H Blood Pressure Location Lt brachial Position Sitting Pulse 83 Pulse Source Pulse Oximeter Temp 97.1 F Temp Source Temporal Artery Scan Pulse Oximetry (%) 96 Oxygen Delivery Method Room Air Intake Visit Reasons: f/u HTN Sleeper Cutter Required: No Accompanied by: Self / Same As Patient Allergies No Known Allergies Allergy (Mild, Verified 10/03/24 10:46) NOT APPLICABLE Tobacco use date assessed: 10/03/24 Dental Screening Dental Screen Date: 10/03/24 Did you have a dental visit in the last 12 months?: Yes Did you have a dental problem in the last 6 months where you did not have access to dental care?: No Was dental information given to patient?: Patient has dentist [facility] Medical History History of diverticulitis Elevated cholesterol Surgical History Hx of rectal polypectomy History of repair of left rotator cuff History of nasal surgery Hx of colonoscopy History of total right hip replacement Family History Father Colon cancer CVD (cardiovascular disease) Myocardial infarction S/P triple vessel bypass Prostate cancer Mother History of breast cancer Brother Myocardial infarction Social History Housing: House Alcohol intake: current Alcohol intake frequency: a few times a week Alcohol type: beer Patient Tobacco Use Status: Never used Tobacco e-Cigarette/Vaping Use: Never Used service: No Current occupational status: employed Cognitive needs: No Hearing needs: No Vision needs: No Questionnaire PHQ-9 Over the last 2 weeks, how often have you been bothered by any of the following problems? 1. Little interest or pleasure in doing things: not at all 2. Feeling down, depressed, or hopeless: not at all 3. Trouble falling or staying asleep, or sleeping too much: not at all 4. Feeling tired or having little energy: not at all 5. Poor appetite or overeating: not at all 6. Feeling bad about yourself - or that you are a failure or have let yourself or your family down: not at all 7. Trouble concentrating on things, such as reading the newspaper or watching television: not at all 8. Moving or speaking so slowly that other people could have noticed. Or the opposite - being so fidgety or restless that you have been moving around a lot more than usual: not at all 9. Thoughts that you would be better off or of hurting yourself in some way: not at all Total score: 0 Depression Screening Interpretation: Negative Depression Screening Done: Yes 40241 - PHQ-9 Billing: Yes Source: Developed by Drs. Jude Serrato, Ida Vela, Akira Pickens and colleagues, with an educational belle from [employer]. Thrive Questionnaire Date Thrive assessed: 10/03/24 I am a: Patient What is your living situation today?: I have a steady place to live Within the past 12 months, did the food you bought not last and you didn't have the money to get more?: Never true Within the past 12 months, did you worry whether your food would run out before you got money to buy more?: Never true Do you have trouble paying for medicines?: No Do you have trouble getting transportation to medical appointments?: No Do you have trouble paying your heating and electricity bill?: No Do you have trouble taking care of your child, family member or friend?: No Do you have trouble with day-to-day activities such as bathing, preparing meals, shopping, managing finances, etc.?: No Are you currently unemployed and looking for a job?: No Are you interested in more education?: No Please select the resources that you would like help with: None Currently or been in a relationship where the following occur: No concerns reported THRIVE Score: 0 AUDIT C Alcohol Use Questionnaire (AUDIT-C) 1. How often do you have a drink containing alcohol?: 2-3 times a week 2. How many drinks containing alcohol do you have on a typical day when you are drinking?: 3 or 4 3. How often do you have six or more drinks on one occasion?: Less than monthly Total Score: 5 Score Reviewed/Action Taken: Yes CHANG-7 AMB Questionnaire CHANG-7 Date CHANG - 7 assessed: 10/03/24 Feeling nervous, anxious, or on edge: 0 = Not at all Not being able to stop or control worryin = Not at all Worrying too much about different things: 0 = Not at all Trouble relaxin = Not at all Being so restless that it is hard to sit still: 0 = Not at all Becoming easily annoyed or irritable: 0 = Not at all Feeling afraid as if something awful might happen: 0 = Not at all Total CHANG-7 score (0-4 normal; 5-9 mild; 10-14 moderate; 15-21 severe): 0 Source: Developed by Drs. Jude Serrato, Ida Vela, Akira Pickens and colleagues, with an educational belle from [employer]. CHANG-7 Assessment Billing CHANG-7 Assessment Tool: CHANG-7 Assessment 36982 Physical exam (Primary Care) Tobacco/Smoking Status: Tobacco use Status Tobacco use date assessed 04/09/24 07/10/24 09:35 Patient Tobacco Use Status Never used Tobacco 07/10/24 09:44 e-Cigarette/Vaping Use Never Used 07/10/24 09:44 Depression Screening Interpretation: Negative Thrive Assessment: Date of Thrive Assessment Date Thrive assessed 04/09/24 07/10/24 09:35 Currently or been in a relationship where the following occur: No concerns reported Coding Additional Codes PHQ-9 - 02551 - PHQ-9 Billing: Yes ([id number]) CHANG-7 Assessment Billing - CHANG-7 Assessment Tool: CHANG-7 Assessment [id number] ([id number])
[2024-10-03 10:43] VITALS: BP 140/80; PULSE 83; TEMP 36.2; O2SAT 96; BMI 34.4
--- NOTE | 2024-10-03 10:47 | A.OFFPC_ITS ---
Vital Signs 10/03/24 10:43 Height 6 ft Weight 253 lb 6 oz BMI 34.4 BP 140/80 H Blood Pressure Location Lt brachial Position Sitting Pulse 83 Pulse Source Pulse Oximeter Temp 97.1 F Temp Source Temporal Artery Scan Pulse Oximetry (%) 96 Oxygen Delivery Method Room Air Intake Visit Reasons: f/u HTN Allergies No Known Allergies Allergy (Mild, Verified 10/03/24 10:48) NOT APPLICABLE Medication List - Last Reconciled 10/05/24 by SARAVANAN Baig blood pressure monitor As directed lisinopril 5 mg PO DAILY 90 days tadalafil 20 mg PO DAILY PRN 7 days Tobacco use date assessed: 04/09/24 Dental Screening Dental Screen Date: 04/09/24 HPI f/u HTN HPI Details The patient is a 58-year-old male with significant past medical history hypertension, obesity, left rotator cuff tear, erectile dysfunction, elevated liver enzymes, and borderline high cholesterol The patient is presenting today for follow up on his blood pressure Patient reports that a home he is getting 130s-150s/70s-80s He reports that he uses a wrist cuff at home His blood pressure in office is still elevated at 140/80 Patient reports that he is currently trying to lose weight Reports that he lost some weight and regained it back Reports that he has not started taking the lisinopril 5 mg daily as yet Reports that he has been trying to make lifestyle modifications He also reports a family history of high blood pressure Discussed with patient about the risk of keeping his blood pressure in an elevated state for prolonged periods reports that he will start taking the medication [facility] Medical History History of diverticulitis Elevated cholesterol Surgical History Hx of rectal polypectomy History of repair of left rotator cuff History of nasal surgery Hx of colonoscopy History of total right hip replacement Family History Father Colon cancer CVD (cardiovascular disease) Myocardial infarction S/P triple vessel bypass Prostate cancer Mother History of breast cancer Brother Myocardial infarction Social History Housing: House Alcohol intake: current Alcohol intake frequency: a few times a week Alcohol type: beer Patient Tobacco Use Status: Never used Tobacco e-Cigarette/Vaping Use: Never Used service: No Current occupational status: employed Cognitive needs: No Hearing needs: No Vision needs: No Questionnaire PHQ-9 Over the last 2 weeks, how often have you been bothered by any of the following problems? 1. Little interest or pleasure in doing things: not at all 2. Feeling down, depressed, or hopeless: not at all 3. Trouble falling or staying asleep, or sleeping too much: not at all 4. Feeling tired or having little energy: not at all 5. Poor appetite or overeating: not at all 6. Feeling bad about yourself - or that you are a failure or have let yourself or your family down: not at all 7. Trouble concentrating on things, such as reading the newspaper or watching television: not at all 8. Moving or speaking so slowly that other people could have noticed. Or the opposite - being so fidgety or restless that you have been moving around a lot more than usual: not at all 9. Thoughts that you would be better off or of hurting yourself in some way: not at all Total score: 0 Depression Screening Interpretation: Negative Depression Screening Done: Yes 13242 - PHQ-9 Billing: Yes Source: Developed by Drs. Jude Serrato, Ida Vela, Akira Pickens and colleagues, with an educational belle from [employer]. Thrive Questionnaire Date Thrive assessed: 10/03/24 I am a: Patient What is your living situation today?: I have a steady place to live Within the past 12 months, did the food you bought not last and you didn't have the money to get more?: Never true Within the past 12 months, did you worry whether your food would run out before you got money to buy more?: Never true Do you have trouble paying for medicines?: No Do you have trouble getting transportation to medical appointments?: No Do you have trouble paying your heating and electricity bill?: No Do you have trouble taking care of your child, family member or friend?: No Do you have trouble with day-to-day activities such as bathing, preparing meals, shopping, managing finances, etc.?: No Are you currently unemployed and looking for a job?: No Are you interested in more education?: No Please select the resources that you would like help with: None Currently or been in a relationship where the following occur: No concerns reported THRIVE Score: 0 AUDIT C Alcohol Use Questionnaire (AUDIT-C) 1. How often do you have a drink containing alcohol?: 2-3 times a week 2. How many drinks containing alcohol do you have on a typical day when you are drinking?: 3 or 4 3. How often do you have six or more drinks on one occasion?: Less than monthly Total Score: 5 Score Reviewed/Action Taken: Yes CHANG-7 AMB Questionnaire CHANG-7 Date CHANG - 7 assessed: 04/09/24 Source: Developed by Drs. Jude Serrato, Ida Vela, Akira Pickens and colleagues, with an educational belle from [employer]. Review of Systems Const Details: Denies chills, Denies fatigue, Denies fever(s), Denies headache(s) and Denies weakness HEENT Denies change in vision, Denies dizziness, Denies headache(s), Denies hearing loss, Denies nasal congestion, Denies sinus pain, Denies sinus pressure and Denies sore throat Card Denies chest pain, Denies lightheadedness, Denies dyspnea and Denies other (palpitations) Resp Denies cough, Denies dyspnea and Denies wheezing GI Denies abdominal pain, Denies melena, Denies hematochezia, Denies change in bowel habits, Denies dyspepsia and Denies nausea Denies hematuria and Denies dysuria Musc Denies abnormal gait, Denies myalgias, Denies arthralgias, Denies numbness and Denies tingling Skin/Breast Denies rash, Denies unusual bruising and Denies wounds Neuro Denies abnormal gait, Denies dizziness, Denies headache(s), Denies memory loss, Denies numbness, Denies Sensory deficit (Neuro), Denies tingling and Denies weakness Psych Denies anxiety, Denies depression and Denies memory loss Endo Denies cold intolerance, Denies fatigue, Denies heat intolerance, Denies polydipsia and Denies polyuria Ace/Lymph Denies easy bleeding and Denies easy bruising Aller/Immun Denies wheezing Physical exam (Primary Care) Vital Signs: Last Vital Signs Temp 97.1 F 10/03/24 10:43 Pulse 83 10/03/24 10:43 BP 140/80 H 10/03/24 10:43 Pulse Ox 96 10/03/24 10:43 Oxygen Delivery Method Room Air 10/03/24 10:43 BMI result Body Mass Index 34.4 Tobacco/Smoking Status: Tobacco use Status Tobacco use date assessed 04/09/24 10/03/24 10:53 Patient Tobacco Use Status Never used Tobacco 10/03/24 10:53 e-Cigarette/Vaping Use Never Used 10/03/24 10:53 PHQ-9: PHQ-9 Score PHQ-9: Total score 0 10/03/24 10:47 Depression Screening Interpretation: Negative Thrive Assessment: Date of Thrive Assessment Date Thrive assessed 04/09/24 10/03/24 10:53 Currently or been in a relationship where the following occur: No concerns reported Const Other: General: no acute distress, well developed, alert and awake Nutritional Appearance: well nourished Orientation/consciousness: patient oriented x3 HENMT Head: Yes normocephalic and Yes atraumatic Ears: hearing grossly normal bilaterally and TM's normal bilaterally General nose exam: Normal external nose present and Normal nares present Mouth: Normal oral and palatal mucosa present and moist mucous membranes Eyes Pupils: Equal, round and reactive pupils present and Pupil accommodation reflex normal EOM: EOMs intact bilaterally Neck Neck: Yes normal visual inspection, Yes no lymphadenopathy and Yes trachea midline Thyroid: Thyroid normal Carotids: no bruits Lymphatic: no lymphadenopathy noted Chest Chest palpation & inspection: normal inspection of the chest Resp Effort & Inspection: normal respiratory effort Auscultation: clear to auscultation bilaterally Cardio Rate: regular rate Rhythm: regular rhythm Heart sounds: S1 normal heart sound present, S2 normal heart sound present, no gallops, no murmurs and no rubs GI Palpation (GI): Abdomen is soft and nontender to palpation, No hepatosplenomegaly Auscultation: normal bowel sounds General: Yes no CVA tenderness Back/Spine/Pelvis Back: no CVA tenderness Cervical Spine: cervical ROM normal and No Cervical spine tenderness Thoracic/Lumbar Spine: thoraco-lumbar ROM normal, No pain with thoraco-lumbar ROM, No thoracic spinal tenderness and No lumbar spinal tenderness Skin General: warm and dry. Normal skin color. Normal skin turgor Lesions: no lesions Nails: normal Neuro General: patient oriented x3, gait normal Cranial nerves: Yes Equal, round and reactive pupils present Cognition (Neuro): normal cognition Gait exam (Neuro): Normal gait present Extrem General: Yes normal to inspection, No edema and No calf tenderness Psych Appearance: grossly normal Affect: normal affect Attitude: cooperative Thought process: Normal thought process present Coding Level of Care Code Est Pt Level 4 (42079) Diagnoses Primary hypertension I10 Hypertension type: primary hypertension Borderline high cholesterol E78.9 Elevated liver enzymes R74.8 Other male erectile dysfunction N52.8 Erectile dysfunction type: due to other cause Class 2 obesity due to excess calories without serious comorbidity with body mass index (BMI) of 35.0 to 35.9 in adult E66.09; Z68.35 Body mass index: BMI 35.0-35.9 Obesity classification: adult class 2 (BMI 35 - 39.9) Obesity type: due to excess calories Serious obesity comorbidity presence: without serious comorbidity Additional Codes PHQ-9 - 44490 - PHQ-9 Billing: Yes ([id number]) Time Spent (min) 29 Assessment & Plan Assessment & Plan (1) HTN (hypertension): Code(s): I10 - Essential (primary) hypertension Category: Medical Qualifiers: Hypertension type: primary hypertension Qualified Code(s): I10 - Essential (primary) hypertension Plan: The patient blood pressure continues to be above goal. He has been trying to use lifestyle modifications, however, his motivation has been fluctuating, resulting in losing and regaining weight. Patient reports family history of high blood pressure. Reports that he thinks that some of this is hereditary. The patient was prescribed lisinopril 5 mg daily. Reports filling the prescription but have not started the medication. Reinforced a low-sodium diet Encouraged medication compliance (2) Borderline high cholesterol: Code(s): E78.9 - Disorder of lipoprotein metabolism, unspecified Category: Medical Plan: On previous labs: Total cholesterol 205, LDL 139, HDL 40 Reinforced a diet low in cholesterol/activity as tolerated CMP reordered for three-month follow-up visit (3) Elevated liver enzymes: Code(s): R74.8 - Abnormal levels of other serum enzymes Category: Medical Plan: His ALT was slightly elevated on his previous lab, most likely due to him regaining some weight CMP reordered to be checked in 3 months for follow-up appointment (4) Erectile dysfunction: Code(s): N52.9 - Male erectile dysfunction, unspecified Category: Medical Qualifiers: Erectile dysfunction type: due to other cause Qualified Code(s): N52.8 - Other male erectile dysfunction Plan: Continue tadalafil 20 mg daily Discussed with patient about being mindful that this medication also can decrease his blood pressure. He might need to monitor his blood pressure more closely once he starts taking the lisinopril 5 mg daily if and when he uses the tadalafil. (5) Obese: Code(s): E66.9 - Obesity, unspecified Category: Medical Qualifiers: Body mass index: BMI 35.0-35.9 Obesity classification: adult class 2 (BMI 35 - 39.9) Obesity type: due to excess calories Serious obesity comorbidity presence: without serious comorbidity Qualified Code(s): E66.09 - Other obesity due to excess calories; Z68.35 - Body mass index [BMI] 35.0-35.9, adult Plan: Diet/exercise discussed in detail Encouraged to exercise for at least 30 minutes a day/5 days a week Healthy eating discussed. Encouraged to eat fruits/vegetables, protein- fish/baked chicken, and to avoid salty/fried foods, sweets, caffeine and carbohydrates. Encouraged to increase water intake 6-8 glasses a day Plan Plans with the patient to return in 3 months. Started lisinopril 5 mg daily. Obtain new blood work prior to next visit Orders: Orders Lipid Panel 3 Months I10 - Essential (primary) hypertension, L98.9 - Disorder of the skin and subcutaneous tissue, unspecified, R74.8 - Abnormal levels of other serum enzymes TSH reflex Free T4 3 Months I10 - Essential (primary) hypertension, L98.9 - Disorder of the skin and subcutaneous tissue, unspecified, R74.8 - Abnormal levels of other serum enzymes Comprehensive Sunburst. Panel Fast 3 Months I10 - Essential (primary) hypertension, L98.9 - Disorder of the skin and subcutaneous tissue, unspecified, R74.8 - Abnormal levels of other serum enzymes Complete Blood Count Auto Diff 3 Months I10 - Essential (primary) hypertension, L98.9 - Disorder of the skin and subcutaneous tissue, unspecified, R74.8 - Abnormal levels of other serum enzymes UA CC w/rflx Micro + Cult 3 Months I10 - Essential (primary) hypertension, L98.9 - Disorder of the skin and subcutaneous tissue, unspecified, R74.8 - Abnormal levels of other serum enzymes Medications: Refilled tadalafil administer approximately 30min before sexual activity; do not use more than 1 dose per 24hrs 20 mg PO DAILY PRN 7 tabs 0RF sexual activity 7 days N52.8 - Other male erectile dysfunction lisinopril 5 mg PO DAILY 90 tabs 1RF 90 days I10 - Essential (primary) hypertension
--- OUTSIDE RECORDS SUMMARY | 2024-10-03 14:20 | XMS_ITS | Patient Health Record ---
Author Organization [facility] Address [address] [place] [address] Care Team Providers Care Radar Technician Name Role Phone Samm Licona Primary Care Provider Unavailab Jude Calloway Unavailable [phone] ALLERGIES No Known Allergies REASON FOR REFERRAL No Information IMMUNIZATIONS Vaccine Route Administration Date Status Comme nts Influenza Unknown 06/23/2021 Administered SOCIAL HISTORY Sex Assigned At : Social History Observation Description Sex Assigned At Unknown PROBLEMS Problem Type ICD Code Onset Dates Problem Status W/U Status Risk SNOMED Code Notes Problem Encounter for screening for malignant neoplasm of colon (Z12.11) Active confirmed 367031681 Problem Preprocedural examination (Z01.818) Active confirmed [id number] Problem Hx of adenomatous colonic polyps (Z86.010) Active confirmed [id number] Problem Diverticulosis of colon (K57.30) Active confirmed Diverticulosi s of colon (230917005) PLAN OF TREATMENT Pending Test Test Name Order Date Pathology 02/09/2022 Future Test Test Name Order Date COLONOSCOPY 01/21/2015 COLONOSCOPY 11/10/2021 Insurance Providers Payer Name Payer Address Payer Phone Subscriber Number Group Number Insured Name Patient Relationship to Insured Coverage Start Date Coverage End Date [facility] [id number] [facility] [phone] [id number] MARTA BEAULIEU Self - patient is the insured MEDICAL (GENERAL) HISTORY Medical History History ICD Code Denies DE,DM,CVA,Lung disease,renal dise ase Elevated cholesterol Diverticulitis in 2008--admi tted for several days and treated with antibiotics-a CT scan confirmed diverticulitis involving the distal descending and proximal third of the sigmoid colon with a focal confined perforation, but no abscess Colonoscopy in 03/2015-1 small tubular ad enoma removed Torn rotator cuff on the lef t--scheduled for surgery on 12/08/2021--Dr. Matias Surgical History Surgery Date(Month/Year) Deviated septum Right hip replacement in 2018 Fibroepithelial polyp removed from the d entate line by Dr. Maya Scheduled for left rotator c uff repair in December of [address] Cho
== END 2024-10-03 11:05 | disposition home or self-care (01) ==
PROVIDERS: PCP Physician Assistant; Visit Provider Physician Assistant
DX: I10 Essential (primary) hypertension (principal); E78.9 Disorder of lipoprotein metabolism, unspecified; R74.8 Abnormal levels of other serum enzymes; N52.8 Other male erectile dysfunction; E66.09 Other obesity due to excess calories; Z68.35 Body mass index [BMI] 35.0-35.9, adult

== ENCOUNTER → 2024-10-03 10:40 | Outpatient (BNVA) | payer OTHER, SELFPAY | PROVIDERS: PCP Physician Assistant; Visit Provider Physician Assistant | DX: I10 Essential (primary) hypertension (principal); E78.9 Disorder of lipoprotein metabolism, unspecified; R74.8 Abnormal levels of other serum enzymes; N52.8 Other male erectile dysfunction; E66.09 Other obesity due to excess calories; Z68.35 Body mass index [BMI] 35.0-35.9, adult | CPT/HCPCS: 96127; 99212 ==

== ENCOUNTER 2024-12-31 06:21 | Outpatient (REF) | payer MEDICARE, SELFPAY ==
[2024-12-31 06:43] LABS: MANUAL DIFF FLAG NO
[2024-12-31 07:20] LABS: Basophils Absolute Auto 0.1 X10*3/uL (0.0-0.2); Basophils Percent Auto 1.3 % (0-2); Eosinophils Absolute Auto 0.2 X10*3/uL (0.0-0.4); Eosinophils Percent Auto 3.8 % (0-4); Hematocrit 44.5 % (42.0-52.0); Hemoglobin 15.7 g/dl (14.0-18.0); Imm Gran Abs Auto 0.01 X10*3/uL (0.00-0.03); Imm Gran Pct Auto 0.2 % (0.0-0.4); Lymphocytes Absolute Auto 1.7 X10*3/uL (1.2-4.9); Lymphocytes Percent Auto 36.7 % (20-40); Mean Corpuscular HGB Conc 35.3 g/dl (31.0-36.0); Mean Corpuscular Hemoglobin 33.2 pg (27.0-33.0); Mean Corpuscular Volume 94.1 fL (80.0-98.0); Mean Platelet Volume 9.6 fL (9.4-12.4); Monocytes Absolute Auto 0.6 X10*3/uL (0.1-1.2); Monocytes Percent Auto 12.2 % (2-11); Neutrophils Absolute Auto 2.2 x10*3/uL (2.0-8.3); Neutrophils Percent Auto 45.8 % (45-73); Platelet Count 281 X10*3/uL (160-400); Red Blood Count 4.73 X10*6/uL (4.60-5.80); Red Cell Distribution Width 12.3 % (11.0-16.0); White Blood Count 4.7 X10*3/uL (4.8-10.8)
[2024-12-31 07:49] LABS: Appearance Urine Clear; Color Urine Yellow; Glucose Urine UA Negative (Negative); Leukocyte Esterase Urine Negative (Negative); Nitrite Urine Negative (Negative); PH 5.5 (5.0-9.0); Urine Blood Negative (Negative); Urine Ketones Negative (Negative); Urine Protein Negative (Neg-Trace)
[2024-12-31 07:59] LABS: Alanine Aminotransferase 26 U/L (0-40); Albumin Level 4.1 g/dL (3.5-5.0); Alkaline Phosphatase 73 U/L (39-117); Anion Gap 10 (12-20); Aspartate Amino Transferase 25 U/L (5-37); Bilirubin Total 0.5 mg/dL (0.0-1.0); Blood Urea Nitrogen 11 mg/dL (9-16); Calcium 8.8 mg/dL (8.4-10.2); Carbon Dioxide 26 mmol/L (22-29); Chloride 107 mmol/L (96-108); Cholesterol 198 mg/dL (<200); Estimated Glomerular Filt Rate > 60; Glucose Fasting 105 mg/dL (60-99); HDL Cholesterol 49 mg/dL (>40); LDL Cholesterol Calculated 131 mg/dL (<100); Potassium 4.3 mmol/L (3.3-5.1); Sodium 139 mmol/L (135-145); Total Protein 7.5 g/dL (6.5-8.0); Triglycerides 92 mg/dL (<150)
[2024-12-31 08:18] LABS: TSH reflex Free T4 3.55 uIU/mL (0.32-4.0)
[2024-12-31 09:15] LABS: Creatinine Urine 192.49 mg/dL; Microalbum/Creatinine Ratio Ur 6.7 ug/mg cr (<30)
== END 2024-12-31 06:22 | disposition home or self-care (01) ==
LOC: HO.LAB 06:21
PROVIDERS: Physician Assistant
DX: I10 Essential (primary) hypertension (principal); L98.9 Disorder of the skin and subcutaneous tissue, unspecified; R74.8 Abnormal levels of other serum enzymes
CPT/HCPCS: 36415; 80053; 80061; 81003; 82043; 82570; 84443; 85025; 85027

== ENCOUNTER 2025-01-01 10:22 | Outpatient (AMB) | payer MEDICARE, SELFPAY ==
--- NOTE | 2025-01-01 10:24 | A.OFFPC_ITS ---
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 Required: No Accompanied by: Self / Same As Patient Allergies No Known Allergies Allergy (Mild, Verified 01/01/25 10:54) NOT APPLICABLE Medication List - Last Reconciled 01/01/25 by SARAVANAN Baig blood pressure monitor As directed lisinopril 5 mg PO DAILY 90 days tadalafil 20 mg PO DAILY PRN 7 days Tobacco use date assessed: 01/01/25 Dental Screening Dental Screen Date: 01/01/25 Did you have a dental visit in the last 12 months?: Yes Did you have a dental problem in the last 6 months where you did not have access to dental care?: No Was dental information given to patient?: Patient has dentist HPI HTN/HLD/elevated liver enzymes HPI Details The patient is a 59-year-old male presenting with a follow-up for hyperlipidemia, Intolerance glucose test, HTN, obesity, elevated liver enzymes and diverticulitis. He has a history of elevated cholesterol which has shown improvement in recent tests, attributed to lifestyle modifications. Intolerance glucose test remains a concern with a fasting glucose level rising to 105 mg/dL, indicating an upward trend. The patient reports a high intake of sweets, particularly chocolate, which he plans to reduce. The patient experienced a recent flare-up of diverticulitis, managed by dietary changes and previously prescribed antibiotics, with resolution noted. He expresses concern about potential gout, noting pain in his right great toe that has been feeling better, reports family history of gout. Additionally, he was previously found to have elevated liver enzymes, which have improved with lifestyle changes, including reduced alcohol intake. Blood pressure shows recent improvement with readings of 124/76 mmHg, positively impacted by increased activity and hydration. The patient is motivated to continue lifestyle modifications to achieve further weight loss and health benefits. [facility] Medical History History of diverticulitis Elevated cholesterol Surgical History Hx of rectal polypectomy History of repair of left rotator cuff History of nasal surgery Hx of colonoscopy History of total right hip replacement Family History Father Colon cancer CVD (cardiovascular disease) Myocardial infarction S/P triple vessel bypass Prostate cancer Mother History of breast cancer Brother Myocardial infarction Social History Housing: House Alcohol intake: current Alcohol intake frequency: a few times a week Alcohol ty pe: beer Patient Tobacco Use Status: Never used Tobacco e-Cigarette/Vaping Use: Never Used service: No Current occupational status: employed Cognitive needs: No Hearing needs: No Vision needs: No Questionnaire PHQ-9 Over the last 2 weeks, how often have you been bothered by any of the following problems? 1. Little interest or pleasure in doing things: not at all 2. Feeling down, depressed, or hopeless: not at all 3. Trouble falling or staying asleep, or sleeping too much: not at all 4. Feeling tired or having little energy: not at all 5. Poor appetite or overeating: not at all 6. Feeling bad about yourself - or that you are a failure or have let yourself or your family down: not at all 7. Trouble concentrating on things, such as reading the newspaper or watching television: not at all 8. Moving or speaking so slowly that other people could have noticed. Or the opposite - being so fidgety or restless that you have been moving around a lot more than usual: not at all 9. Thoughts that you would be better off or of hurting yourself in some way: not at all Total score: 0 Depression Screening Interpretation: Negative Depression Screening Done: Yes Source: Developed by Drs. Jude Serrato, Ida Vela, Akira Pickens and colleagues, with an educational belle from [employer]. Thrive Questionnaire Date Thrive assessed: 01/01/25 I am a: Patient What is your living situation today?: I have a steady place to live Within the past 12 months, did the food you bought not last and you didn't have the money to get more?: Never true Within the past 12 months, did you worry whether your food would run out before you got money to buy more?: Never true Do you have trouble paying for medicines?: No Do you have trouble getting transportation to medical appointments?: No Do you have trouble paying your heating and electricity bill?: No Do you have trouble taking care of your child, family member or friend?: No Do you have trouble with day-to-day activities such as bathing, preparing meals, shopping, managing finances, etc.?: No Are you currently unemployed and looking for a job?: No Are you interested in more education?: No Please select the resources that you would like help with: None Currently or been in a relationship where the following occur: No concerns reported THRIVE Score: 0 AUDIT C Alcohol Use Questionnaire (AUDIT-C) 1. How often do you have a drink containing alcohol?: 2-3 times a week 2. How many drinks containing alcohol do you have on a typical day when you are drinking?: 1 or 2 3. How often do you have six or more drinks on one occasion?: Never Total Score: 3 CHANG-7 AMB Questionnaire CHANG-7 Date CHANG - 7 assessed: 01/01/25 Feeling nervous, anxious, or on edge: 0 = Not at all Not being able to stop or control worryin = Not at all Worrying too much about different things: 0 = Not at all Trouble relaxin = Not at all Being so restless that it is hard to sit still: 0 = Not at all Becoming easily annoyed or irritable: 0 = Not at all Feeling afraid as if something awful might happen: 0 = Not at all Total CHANG-7 score (0-4 normal; 5-9 mild; 10-14 moderate; 15-21 severe): 0 Source: Developed by Drs. Jude Serrato, Ida Vela, Akira Pickens and colleagues, with an educational belle from [employer]. Review of Systems Const Details: - Gastrointestinal: Reports recent flare-up of diverticulitis. - Endocrine: Reports increased blood glucose levels, trending upwards. - Musculoskeletal: Reports joint pain with concern for gout, familial history noted. - Cardiovascular: Reports improvement in blood pressure with lifestyle changes. - Metabolic: Reports a history of hyperlipidemia, currently managing through lifestyle modifications. - Hepatic: Previously elevated liver enzymes, currently improving. Denies headache(s) Eyes Denies loss of vision ENT Denies vertigo, Denies dizziness, Denies headache(s) and Denies sore throat Card Denies chest pain, Denies leg edema and Denies lightheadedness Resp Denies cough, Denies hemoptysis and Denies wheezing GI Reports abdominal pain (reports LLQ discomfort few weeks ago that resolved after abt tx), Denies melena, Denies constipation, Denies diarrhea and Denies vomiting Denies dysuria, Denies urinary frequency and Denies urinary urgency Musc Reports arthralgias (right great toe pain recently, feeling better after dietary modification), Denies joint swelling, Denies numbness and Denies tingling Neuro Denies Abnormal speech present, Denies behavioral changes, Denies vertigo, Denies dizziness, Denies headache(s), Denies loss of vision, Denies memory loss, Denies numbness and Denies tingling Psych Denies anxiety, Denies behavioral changes, Denies depression, Denies memory loss and Denies panic attacks Ace/Lymph Denies easy bleeding and Denies easy bruising Aller/Immun Denies wheezing Physical exam (Primary Care) Vital Signs: Last Vital Signs Temp 98.5 F 01/01/25 10:25 Pulse 72 01/01/25 10:25 Resp 14 01/01/25 10:25 BP 124/76 01/01/25 10:25 Pulse Ox 98 01/01/25 10:25 Oxygen Delivery Method Room Air 01/01/25 10:25 BMI result Body Mass Index 34.7 Tobacco/Smoking Status: Tobacco use Status Tobacco use date assessed 01/01/25 01/01/25 10:31 Patient Tobacco Use Status Never used Tobacco 01/01/25 10:31 e-Cigarette/Vaping Use Never Used 01/01/25 10:31 PHQ-9: PHQ-9 Score PHQ-9: Total score 0 01/01/25 11:12 Depression Screening Interpretation: Negative Thrive Assessment: Date of Thrive Assessment Date Thrive assessed 01/01/25 01/01/25 10:31 Currently or been in a relationship where the following occur: No concerns reported Const General: healthy appearing, no acute distress, alert and awake Nutritional Appearance: well nourished Orientation/consciousness: oriented to person, oriented to place and oriented to time HENMT Ears: external ears normal General nose exam: Normal external nose present Eyes Conjunctivae: conjunctivae normal Sclerae: sclerae normal Pupils: Equal, round and reactive pupils present Neck Neck: Yes no lymphadenopathy and Yes no JVD Thyroid: Thyroid normal Carotids: no bruits Resp Effort & Inspection: normal respiratory effort and not tachypneic Auscultation: no crackles, no rales, no rhonchi and no wheezes Cardio Rate: regular rate Rhythm: regular rhythm Heart sounds: no murmurs and normal S1 and S2 GI Palpation (GI): Soft to palpation, nontender, no hepatomegaly and no splenomegaly Auscultation: normal bowel sounds Skin General skin exam: no rashes or lesions noted and dry skin Neuro General: oriented to person, oriented to place and oriented to time Cranial nerves: Yes Equal, round and reactive pupils present Speech: No Abnormal speech present Gait exam (Neuro): Normal gait present Motor exam (neuro): no tremor noted Extrem Right upper extremity: full ROM Left upper extremity: full ROM Right lower extremity: full ROM and foot (right great toes without swelling or pain); no edema Left lower extremity: full ROM; no edema Psych Mental Status: mental status grossly normal Speech and movement: Normal speech and movement present Affect: normal affect Attitude: cooperative Thought process: Normal thought process present Results Reviewed Results Reviewed: Laboratory Tests 12/31/24 06:41 WBC 4.7 L RBC 4.73 Hgb 15.7 Hct 44.5 MCV 94.1 MCH 33.2 H MCHC 35.3 RDW 12.3 Plt Count 281 Sodium 139 Potassium 4.3 Chloride 107 Carbon Dioxide 26 Anion Gap 10 L BUN 11 Creatinine 0.86 Estimated GFR > 60 Fasting Glucose 105 H Calcium 8.8 Total Bilirubin 0.5 AST 25 ALT 26 Alkaline Phosphatase 73 Total Protein 7.5 Albumin 4.1 Triglycerides 92 Cholesterol 198 LDL Cholesterol, Calc 131 H HDL Cholesterol 49 TSH 3.55 Coding Level of Care Code Est Pt Level 3 (58683) Diagnoses Primary hypertension I10 Hypertension type: primary hypertension Elevated liver enzymes R74.8 Pain of right great toe M79.674 Laterality: right Class 1 obesity E66.811 Glucose tolerance test abnormal R73.09 Time Spent (min) 35 Assessment & Plan Assessment & Plan (1) HTN (hypertension): Code(s): I10 - Essential (primary) hypertension Category: Medical Qualifiers: Hypertension type: primary hypertension Qualified Code(s): I10 - Essential (primary) hypertension (2) Elevated liver enzymes: Code(s): R74.8 - Abnormal levels of other serum enzymes Category: Medical (3) Great toe pain: Code(s): M79.676 - Pain in unspecified toe(s) Category: Medical Qualifiers: Laterality: right Qualified Code(s): M79.674 - Pain in right toe(s) (4) Class 1 obesity: Code(s): E66.811 - Obesity, class 1 Category: Medical (5) Glucose tolerance test abnormal: Code(s): R73.09 - Other abnormal glucose Category: Medical Plan Lifestyle modifications will remain a keystone for managing hyperglycemia and hyperlipidemia, with an emphasis on reducing dietary sweets and improving physical activity. The patient was advised to maintain regular glucose monitoring due to the rising trend and is encouraged to continue dietary measures that have shown improvement in lipid profiles. For diverticulitis, dietary management is suggested, with medical consultation for any recurrence. Gout-like symptoms warrant monitoring, and future uric acid testing will be considered. Continued moderation of alcohol is planned due to improved liver enzyme results. Blood pressure control appears effective with current lifestyle adjustments, avoiding additional medication use. Patient was informed and verbally consented to the use of an ambient scribe for clinic note documentation during this visit. Orders: Orders Glucose Fasting 3 Months E66.09 - Other obesity due to excess calories, I10 - Essential (primary) hypertension, M79.676 - Pain in unspecified toe(s), N52.8 - Other male erectile dysfunction, R74.8 - Abnormal levels of other serum enzymes, Z68.35 - Body mass index [BMI] 35.0-35.9, adult Hemoglobin A1c 3 Months E66.09 - Other obesity due to excess calories, I10 - Essential (primary) hypertension, M79.676 - Pain in unspecified toe(s), N52.8 - Other male erectile dysfunction, R74.8 - Abnormal levels of other serum enzymes, Z68.35 - Body mass index [BMI] 35.0-35.9, adult Vitamin D 25-OH Total 3 Months E66.09 - Other obesity due to excess calories, I10 - Essential (primary) hypertension, M79.676 - Pain in unspecified toe(s), N52.8 - Other male erectile dysfunction, R74.8 - Abnormal levels of other serum enzymes, Z68.35 - Body mass index [BMI] 35.0-35.9, adult Complete Blood Count Auto Diff 3 Months E66.09 - Other obesity due to excess calories, I10 - Essential (primary) hypertension, M79.676 - Pain in unspecified toe(s), N52.8 - Other male erectile dysfunction, R74.8 - Abnormal levels of other serum enzymes, Z68.35 - Body mass index [BMI] 35.0-35.9, adult Comprehensive [place]. Panel Fast 3 Months E66.09 - Other obesity due to excess calories, I10 - Essential (primary) hypertension, M79.676 - Pain in unspecified toe(s), N52.8 - Other male erectile dysfunction, R74.8 - Abnormal levels of other serum enzymes, Z68.35 - Body mass index [BMI] 35.0-35.9, adult Uric Acid 3 Months E66.09 - Other obesity due to excess calories, I10 - Essential (primary) hypertension, M79.676 - Pain in unspecified toe(s), N52.8 - Other male erectile dysfunction, R74.8 - Abnormal levels of other serum enzymes, Z68.35 - Body mass index [BMI] 35.0-35.9, adult UA CC w/rflx Micro + Cult 3 Months E66.09 - Other obesity due to excess calories, I10 - Essential (primary) hypertension, M79.676 - Pain in unspecified toe(s), N52.8 - Other male erectile dysfunction, R74.8 - Abnormal levels of other serum enzymes, Z68.35 - Body mass index [BMI] 35.0-35.9, adult Lipid Panel 3 Months E66.09 - Other obesity due to excess calories, I10 - Essential (primary) hypertension, M79.676 - Pain in unspecified toe(s), N52.8 - Other male erectile dysfunction, R74.8 - Abnormal levels of other serum enzymes, Z68.35 - Body mass index [BMI] 35.0-35.9, adult Patient Instructions: - Continue exercising regularly and increase physical activity. - Reduce intake of sweets and chocolate to manage blood sugar levels. - Monitor blood pressure at home and maintain good hydration. - Consult for any recurring diverticulitis symptoms; avoid self-treatment with antibiotics. - Follow a healthy diet to support further cholesterol reduction. - Observe joint symptoms and report any persistent pain for gout evaluation. - Limit alcohol consumption to maintain liver health. - Schedule follow-up in three months for further evaluation and monitoring.
[2025-01-01 10:25] VITALS: BP 124/76; PULSE 72; RESP 14; TEMP 36.9; O2SAT 98; BMI 34.7
== END 2025-01-01 11:14 | disposition home or self-care (01) ==
LOC: HO.HMCH 10:23
PROVIDERS: PCP Physician Assistant
DX: I10 Essential (primary) hypertension (principal); R74.8 Abnormal levels of other serum enzymes; Z68.34 Body mass index [BMI] 34.0-34.9, adult; E66.811 Obesity, class 1; R73.09 Other abnormal glucose; M79.674 Pain in right toe(s)

== ENCOUNTER → 2025-01-01 10:22 | Outpatient (BNVA) | payer MEDICARE, SELFPAY | PROVIDERS: PCP Physician Assistant | DX: I10 Essential (primary) hypertension (principal); E78.5 Hyperlipidemia, unspecified; E66.9 Obesity, unspecified; R74.8 Abnormal levels of other serum enzymes; M79.674 Pain in right toe(s); E66.811 Obesity, class 1; R73.09 Other abnormal glucose; Z68.34 Body mass index [BMI] 34.0-34.9, adult | CPT/HCPCS: 96127; 99212 ==

== ENCOUNTER 2025-04-01 06:02 | Outpatient (REF) | payer MEDICARE, SELFPAY ==
[2025-04-01 06:27] LABS: MANUAL DIFF FLAG NO
[2025-04-01 07:21] LABS: Hematocrit 45.1 % (42.0-52.0); Hemoglobin 16.1 g/dl (14.0-18.0); Imm Gran Abs Auto 0.02 X10*3/uL (0.00-0.03); Imm Gran Pct Auto 0.4 % (0.0-0.4); Lymphocytes Absolute Auto 1.8 X10*3/uL (1.2-4.9); Mean Corpuscular HGB Conc 35.7 g/dl (31.0-36.0); Mean Corpuscular Hemoglobin 33.4 pg (27.0-33.0); Mean Corpuscular Volume 93.6 fL (80.0-98.0); NRBC Abs Auto 0.000 X10*3/uL (0.0-0.012); NRBC Pct Auto 0.0 /100WBC (0.0-0.2); Platelet Count 284 X10*3/uL (160-400); Red Blood Count 4.82 X10*6/uL (4.60-5.80); White Blood Count 5.5 X10*3/uL (4.8-10.8)
[2025-04-01 07:27] LABS: Hemoglobin A1C 154.1257 umol/L; Total Hemoglobin (HGBA1C) 4198.0047 umol/L
[2025-04-01 07:30] LABS: Appearance Urine Clear; Glucose Urine UA Negative (Negative); PH 6.0 (5.0-9.0); Specific Gravity - Urine 1.015 (1.005-1.025)
[2025-04-01 07:50] LABS: Alanine Aminotransferase 34 U/L (0-40); Albumin Level 4.5 g/dL (3.5-5.0); Alkaline Phosphatase 72 U/L (39-117); Anion Gap 12 (12-20); Aspartate Amino Transferase 28 U/L (5-37); Blood Urea Nitrogen 14 mg/dL (9-16); Calcium 9.2 mg/dL (8.4-10.2); Carbon Dioxide 27 mmol/L (22-29); Chloride 105 mmol/L (96-108); Cholesterol 215 mg/dL (<200); Estimated Glomerular Filt Rate > 60; HDL Cholesterol 48 mg/dL (>40); Potassium 4.2 mmol/L (3.3-5.1); Sodium 140 mmol/L (135-145); Total Protein 7.7 g/dL (6.5-8.0); Triglycerides 157 mg/dL (<150); Uric Acid 6.0 mg/dL (3.4-7.0)
== END 2025-04-01 06:03 | disposition home or self-care (01) ==
LOC: HO.LAB 06:02
DX: I10 Essential (primary) hypertension (principal); N52.8 Other male erectile dysfunction; M79.676 Pain in unspecified toe(s); E66.09 Other obesity due to excess calories; Z68.35 Body mass index [BMI] 35.0-35.9, adult; R74.8 Abnormal levels of other serum enzymes
CPT/HCPCS: 36415; 80053; 80061; 81003; 82306; 83036; 84550; 85025

== ENCOUNTER 2025-04-02 08:53 | Outpatient (AMB) | payer MEDICARE, SELFPAY ==
[2025-04-02 08:55] VITALS: BP 160/84; PULSE 67; RESP 18; TEMP 36.2; O2SAT 95; BMI 34.0
--- NOTE | 2025-04-02 08:55 | MHC.PC.OV ---
Vital Signs 04/02/25 08:55 Height 6 ft Weight 251 lb BMI 34.0 BP 160/84 H Blood Pressure Location Lt brachial Position Sitting Respiration 18 Pulse 67 Pulse Source Pulse Oximeter Temp 97.1 F Temp Source Temporal Artery Scan Pulse Oximetry (%) 95 Oxygen Delivery Method Room Air Intake Visit Reasons: elevated bp/elevated LFT Aboriginal Ceremonial Celebrant Required: No Accompanied by: Self / Same As Patient Allergies No Known Allergies Allergy (Mild, Verified 04/02/25 09:21) NOT APPLICABLE Medication List - Last Reconciled 04/02/25 by SARAVANAN Baig blood pressure monitor As directed lisinopril 5 mg PO DAILY 90 days tadalafil 20 mg PO DAILY PRN 7 days Tobacco use date assessed: 04/02/25 Dental Screening Dental Screen Date: 04/02/25 Did you have a dental visit in the last 12 months?: Yes Did you have a dental problem in the last 6 months where you did not have access to dental care?: No Was dental information given to patient?: Patient has dentist HPI elevated bp/elevated LFT HPI Details The patient is a 59-year-old male presenting follow up appointment for elevated blood pressure and concerns about cholesterol management. The patient reports not taking his prescribed blood pressure medication and acknowledges elevated blood pressure readings during the visit. He attributes the elevated readings to recent caffeine intake and lack of physical activity over the past three weeks. The patient has been assisting a friend, which has disrupted his usual exercise routine, contributing to his current health status. The patient also reports an increase in cholesterol levels, which he attributes to dietary indiscretions and reduced physical activity. He has been advised to start a low-dose statin to manage his cholesterol levels. The patient experiences muscle cramps, which he initially thought were related to blood clots. He has been advised to take magnesium supplements to alleviate these symptoms. [facility] Medical History History of diverticulitis Elevated cholesterol Surgical History Hx of rectal polypectomy History of repair of left rotator cuff History of nasal surgery Hx of colonoscopy History of total right hip replacement Family History Father Colon cancer CVD (cardiovascular disease) Myocardial infarction S/P triple vessel bypass Prostate cancer Mother History of breast cancer Brother Myocardial infarction Social History Housing: House Alcohol intake: current Alcohol intake frequency: a few times a week Alcohol type: beer Patient Tobacco Use Status: Never used Tobacco e-Cigarette/Vaping Use: Never Used service: No Current occupational status: employed Cognitive needs: No Hearing needs: No Vision needs: No Questionnaire PHQ-9 Over the last 2 weeks, how often have you been bothered by any of the following problems? 1. Little interest or pleasure in doing things: not at all 2. Feeling down, depressed, or hopeless: not at all 3. Trouble falling or staying asleep, or sleeping too much: not at all 4. Feeling tired or having little energy: not at all 5. Poor appetite or overeating: not at all 6. Feeling bad about yourself - or that you are a failure or have let yourself or your family down: not at all 7. Trouble concentrating on things, such as reading the newspaper or watching television: not at all 8. Moving or speaking so slowly that other people could have noticed. Or the opposite - being so fidgety or restless that you have been moving around a lot more than usual: not at all 9. Thoughts that you would be better off or of hurting yourself in some way: not at all Total score: 0 Depression Screening Interpretation: Negative Depression Screening Done: Yes Source: Developed by Drs. Jude Serrato, Ida Vela, Akira Pickens and colleagues, with an educational belle from [employer]. Thrive Questionnaire Date Thrive assessed: 04/02/25 I am a: Patient What is your living situation today?: I have a steady place to live Within the past 12 months, did the food you bought not last and you didn't have the money to get more?: Never true Within the past 12 months, did you worry whether your food would run out before you got money to buy more?: Never true Do you have trouble paying for medicines?: No Do you have trouble getting transportation to medical appointments?: No Do you have trouble paying your heating and electricity bill?: No Do you have trouble taking care of your child, family member or friend?: No Do you have trouble with day-to-day activities such as bathing, preparing meals, shopping, managing finances, etc.?: No Are you currently unemployed and looking for a job?: No Are you interested in more education?: No Please select the resources that you would like help with: None Currently or been in a relationship where the following occur: No concerns reported THRIVE Score: 0 AUDIT C Alcohol Use Questionnaire (AUDIT-C) 1. How often do you have a drink containing alcohol?: 2-3 times a week 2. How many drinks containing alcohol do you have on a typical day when you are drinking?: 1 or 2 3. How often do you have six or more drinks on one occasion?: Never Total Score: 3 CHANG-7 AMB Questionnaire CHANG-7 Date CHANG - 7 assessed: 04/02/25 Feeling nervous, anxious, or on edge: 0 = Not at all Not being able to stop or control worryin = Not at all Worrying too much about different things: 0 = Not at all Trouble relaxin = Not at all Being so restless that it is hard to sit still: 0 = Not at all Becoming easily annoyed or irritable: 0 = Not at all Feeling afraid as if something awful might happen: 0 = Not at all Total CHANG-7 score (0-4 normal; 5-9 mild; 10-14 moderate; 15-21 severe): 0 Source: Developed by Drs. Jude Serrato, Ida Vela, Akira Pickens and colleagues, with an educational belle from [employer]. Review of Systems Const Denies body aches, Denies chills, Denies fever(s), Denies headache(s) and Denies poor appetite Eyes Reports no additional complaints ENT Denies dysphagia, Denies dizziness, Denies headache(s) and Denies odynophagia Card Denies chest pain, Denies syncope, Denies edema, Denies irregular heart rhythm, Denies lightheadedness and Denies dyspnea Resp Denies cough and Denies dyspnea GI Denies abdominal pain, Denies constipation, Denies dysphagia, Denies diarrhea, Denies nausea, Denies odynophagia and Denies vomiting Reports no additional complaints Musc Reports no additional complaints and Denies abnormal gait Skin/Breast Reports system reviewed and no additional complaints, except as documented Neuro Denies abnormal gait, Denies dizziness, Denies syncope and Denies headache(s) Psych Reports no additional complaints Physical exam (Primary Care) Vital Signs: Last Vital Signs Temp 97.1 F 04/02/25 08:55 Pulse 67 04/02/25 08:55 Resp 18 04/02/25 08:55 BP 160/84 H 04/02/25 08:55 Pulse Ox 95 04/02/25 08:55 Oxygen Delivery Method Room Air 04/02/25 08:55 BMI result Body Mass Index 34.0 Tobacco/Smoking Status: Tobacco use Status Tobacco use date assessed 04/02/25 04/02/25 09:00 Patient Tobacco Use Status Never used Tobacco 04/02/25 09:00 e-Cigarette/Vaping Use Never Used 04/02/25 09:00 PHQ-9: PHQ-9 Score PHQ-9: Total score 0 04/02/25 13:13 Depression Screening Interpretation: Negative Thrive Assessment: Date of Thrive Assessment Date Thrive assessed 04/02/25 04/02/25 09:00 Currently or been in a relationship where the following occur: No concerns reported Const General: cooperative, healthy appearing, comfortable and no acute distress Orientation/consciousness: patient oriented x3 HENMT Head: Yes normocephalic Ears: hearing grossly normal bilaterally General nose exam: Normal external nose present Eyes General: appearance normal, both eyes and all related structures Conjunctivae: conjunctivae normal Neck Neck: Yes full ROM and Yes no lymphadenopathy Resp Effort & Inspection: normal respiratory effort Auscultation: clear to auscultation bilaterally, no crackles, no rales, no rhonchi and no wheezes Cardio Rate: regular rate Rhythm: regular rhythm Skin General skin exam: no rashes or lesions noted Neuro General: patient oriented x3 Gait exam (Neuro): Normal gait present Extrem General: Yes normal to inspection, Yes full ROM and No edema Psych Affect: normal affect Attitude: cooperative Insight: Good insight present (Psych) Judgement: Good judgement present (Psych) Results Reviewed Results Reviewed: Laboratory Tests 04/01/25 04/01/25 06:20 06:26 WBC 5.5 RBC 4.82 Hgb 16.1 Hct 45.1 MCV 93.6 MCH 33.4 H MCHC 35.7 RDW 12.4 Plt Count 284 Sodium 140 Potassium 4.2 Chloride 105 Carbon Dioxide 27 Anion Gap 12 BUN 14 Creatinine 0.94 Estimated GFR > 60 Fasting Glucose 100 H Estimat Average Glucose 111 Hemoglobin A1c % 5.5 Uric Acid 6.0 Calcium 9.2 Total Bilirubin 0.6 AST 28 ALT 34 Alkaline Phosphatase 72 Total Protein 7.7 Albumin 4.5 Triglycerides 157 H Cholesterol 215 H LDL Cholesterol, Calc 136 H HDL Cholesterol 48 25-OH Vitamin D Total 39.9 Urine Color Yellow Urine Appearance Clear Urine pH 6.0 Ur Specific [place] 1.015 Urine Protein Negative Urine Glucose (UA) Negative Urine Ketones Negative Urine Blood Negative Urine Nitrite Negative Ur Leukocyte Esterase Negative Coding Level of Care Code Est Pt Level 3 (25711) Diagnoses Primary hypertension I10 Hypertension type: primary hypertension Elevated liver enzymes R74.8 Class 2 obesity due to excess calories without serious comorbidity with body mass index (BMI) of 35.0 to 35.9 in adult E66.09; Z68.35 Body mass index: BMI 35.0-35.9 Obesity classification: adult class 2 (BMI 35 - 39.9) Obesity type: due to excess calories Serious obesity comorbidity presence: without serious comorbidity Pure hypercholesterolemia E78.00 Hyperlipidemia type: pure hypercholesterolemia Other male erectile dysfunction N52.8 Erectile dysfunction type: due to other cause Impaired fasting glucose R73.01 Time Spent (min) 34 Assessment & Plan Assessment & Plan (1) HTN (hypertension): Code(s): I10 - Essential (primary) hypertension Category: Medical Qualifiers: Hypertension type: primary hypertension Qualified Code(s): I10 - Essential (primary) hypertension Plan: Blood pressure 160/84 goal systolic less than 130 mmhg Patient has been reluctant to take ordered lisinopril 5 mg and has been trying lifestyle modifications He was again encouraged to take lisinopril 5 mg daily. The medication was reordered. Reinforced low-salt diet (2) Elevated liver enzymes: Code(s): R74.8 - Abnormal levels of other serum enzymes Category: Medical Plan: Liver enzymes has been normal in the last 2 previous labs. We will continue to monitor (3) Obese: Code(s): E66.9 - Obesity, unspecified Category: Medical Qualifiers: Body mass index: BMI 35.0-35.9 Obesity classification: adult class 2 (BMI 35 - 39.9) Obesity type: due to excess calories Serious obesity comorbidity presence: without serious comorbidity Qualified Code(s): E66.09 - Other obesity due to excess calories; Z68.35 - Body mass index [BMI] 35.0-35.9, adult Plan: Encouraged to exercise for at least 30 minutes a day/5 days a week Healthy eating discussed. Encouraged to eat fruits/vegetables, protein-fish/baked chicken, and to avoid salty/fried foods, sweets, caffeine and carbohydrates. Encouraged to increase water intake 6-8 glasses a day (4) HLD (hyperlipidemia): Code(s): E78.5 - Hyperlipidemia, unspecified Category: Medical Qualifiers: Hyperlipidemia type: pure hypercholesterolemia Qualified Code(s): E78.00 - Pure hypercholesterolemia, unspecified Plan: Triglycerides went from 92-157 within 3 months, similarly total cholesterol from 198-215. LDL slightly increased for 131-136. Discussed lifestyle modifications and activity as tolerated. Rosuvastatin 5 mg ordered We will recheck lipid panel in 3 months (5) Erectile dysfunction: Code(s): N52.9 - Male erectile dysfunction, unspecified Category: Medical Qualifiers: Erectile dysfunction type: due to other cause Qualified Code(s): N52.8 - Other male erectile dysfunction Plan: Continue tadalafil 20 mg daily p.r.n. (6) Impaired fasting glucose: Code(s): R73.01 - Impaired fasting glucose Category: Medical Plan: Fasting glucose this all has been slightly elevated. A1c 5.5% Reinforced low sugar/carbohydrate diet We will continue to monitor fasting glucose Orders: Orders TSH reflex Free T4 3 Months I10 - Essential (primary) hypertension, E78.9 - Disorder of lipoprotein metabolism, unspecified, R73.09 - Other abnormal glucose, E66.09 - Other obesity due to excess calories, Z68.35 - Body mass index [BMI] 35.0-35.9, adult, R74.8 - Abnormal levels of other serum enzymes, N52.8 - Other male erectile dysfunction, S46.012D - Strain of muscle(s) and tendon(s) of the rotator cuff of left shoulder, subsequent encounter Complete Blood Count Auto Diff 3 Months I10 - Essential (primary) hypertension, E78.9 - Disorder of lipoprotein metabolism, unspecified, R73.09 - Other abnormal glucose, E66.09 - Other obesity due to excess calories, Z68.35 - Body mass index [BMI] 35.0-35.9, adult, R74.8 - Abnormal levels of other serum enzymes, N52.8 - Other male erectile dysfunction, S46.012D - Strain of muscle(s) and tendon(s) of the rotator cuff of left shoulder, subsequent encounter Comprehensive [place]. Panel Fast 3 Months I10 - Essential (primary) hypertension, E78.9 - Disorder of lipoprotein metabolism, unspecified, R73.09 - Other abnormal glucose, E66.09 - Other obesity due to excess calories, Z68.35 - Body mass index [BMI] 35.0-35.9, adult, R74.8 - Abnormal levels of other serum enzymes, N52.8 - Other male erectile dysfunction, S46.012D - Strain of muscle(s) and tendon(s) of the rotator cuff of left shoulder, subsequent encounter Lipid Panel 3 Months I10 - Essential (primary) hypertension, E78.9 - Disorder of lipoprotein metabolism, unspecified, R73.09 - Other abnormal glucose, E66.09 - Other obesity due to excess calories, Z68.35 - Body mass index [BMI] 35.0-35.9, adult, R74.8 - Abnormal levels of other serum enzymes, N52.8 - Other male erectile dysfunction, S46.012D - Strain of muscle(s) and tendon(s) of the rotator cuff of left shoulder, subsequent encounter UA CC w/rflx Micro + Cult 3 Months I10 - Essential (primary) hypertension, E78.9 - Disorder of lipoprotein metabolism, unspecified, R73.09 - Other abnormal glucose, E66.09 - Other obesity due to excess calories, Z68.35 - Body mass index [BMI] 35.0-35.9, adult, R74.8 - Abnormal levels of other serum enzymes, N52.8 - Other male erectile dysfunction, S46.012D - Strain of muscle(s) and tendon(s) of the rotator cuff of left shoulder, subsequent encounter Vitamin D 25-OH Total 3 Months I10 - Essential (primary) hypertension, E78.9 - Disorder of lipoprotein metabolism, unspecified, R73.09 - Other abnormal glucose, E66.09 - Other obesity due to excess calories, Z68.35 - Body mass index [BMI] 35.0-35.9, adult, R74.8 - Abnormal levels of other serum enzymes, N52.8 - Other male erectile dysfunction, S46.012D - Strain of muscle(s) and tendon(s) of the rotator cuff of left shoulder, subsequent encounter Medications: New rosuvastatin 5 mg PO DAILY 90 tabs 3RF Changed From tadalafil administer approximately 30min before sexual activity; do not use more than 1 dose per 24hrs 20 mg PO DAILY 7 days PRN 7 tabs 1RF sexual activity N52.8 - Other male erectile dysfunction To tadalafil administer approximately 30min before sexual activity; do not use more than 1 dose per 24hrs 20 mg PO DAILY PRN 7 tabs 1RF sexual activity 15 days N52.8 - Other male erectile dysfunction
--- OUTSIDE RECORDS SUMMARY | 2025-04-02 09:17 | XMS_ITS | Patient Health Record ---
Author Organization [facility] Address [address] [place] [address] Care Team Providers Care Senior Property Manager Name Role Phone Samm Licona Primary Care Provider Unavailab Jude Calloway Unavailable [phone] Allergies No Known Allergies Reason For Referral No Information Immunizations Vaccine Route Administration Date Status Comme nts Influenza Unknown 06/23/2021 Administered Problems Problem Type SNOMED Code ICD Code Onset Dates Problem Status W/U Status Risk Notes Problem [id number] Encounter for screening for malignant neoplasm of colon (Z12.11) Active confirmed Problem [id number] Preprocedural examination (Z01.818) Active confirmed Problem [id number] Hx of adenomatou s colonic polyps (Z86.010) Active confirmed Problem Diverticulosis of colon (483386050) Diverticulosis of colon (K57.30) Active confirmed Plan Of Treatment Pending Test Test Name Order Date Pathology 02/09/2022 Future Test Test Name Order Date COLONOSCOPY 01/21/2015 COLONOSCOPY 11/10/2021 Insurance Providers Payer Name Payer Address Payer Phone Subscriber Number Group Number Insured Name Patient Relationship to Insured Coverage Start Date Coverage End Date [facility] [address] [place] [phone] [id number] MARTA BEAULIEU Self - patient is the insured Medical (General) History Medical History History ICD Code Denies [place],DM,CVA,Lung disease,renal dise ase Elevated cholesterol Diverticulitis in [...] Date(Month/Year) Deviated septum Right hip replacement in 2017 Fibroepithelial polyp removed from the d entate line by Dr. Maya Scheduled for left rotator c uff repair in December of [address] Cho
== END 2025-04-02 09:40 | disposition home or self-care (01) ==
LOC: HO.HMCH 08:54
PROVIDERS: PCP Physician Assistant
DX: I10 Essential (primary) hypertension (principal); R74.8 Abnormal levels of other serum enzymes; E66.09 Other obesity due to excess calories; Z68.35 Body mass index [BMI] 35.0-35.9, adult; E78.00 Pure hypercholesterolemia, unspecified; N52.8 Other male erectile dysfunction; R73.01 Impaired fasting glucose

== ENCOUNTER → 2025-04-02 08:53 | Outpatient (BNVA) | payer MEDICARE, SELFPAY | PROVIDERS: PCP Physician Assistant | DX: R25.2 Cramp and spasm (principal); I10 Essential (primary) hypertension; R74.8 Abnormal levels of other serum enzymes; E66.09 Other obesity due to excess calories; Z68.35 Body mass index [BMI] 35.0-35.9, adult; E78.00 Pure hypercholesterolemia, unspecified; N52.8 Other male erectile dysfunction; R73.01 Impaired fasting glucose | CPT/HCPCS: 96127; 99212 ==

== ENCOUNTER 2025-07-02 06:21 | Outpatient (REF) | payer MEDICARE, SELFPAY ==
--- OUTSIDE RECORDS SUMMARY | 2025-07-02 06:25 | XMS_ITS | Patient Health Record ---
Author Organization [facility] Address [address] [place] [address] Care Team Providers Care Lpc Name Role Phone Samm Licona Primary Care Provider Unavailab Jude Calloway Unavailable [phone] Allergies No Known Allergies Reason For Referral No Information Immunizations Vaccine Route Administration Date Status Comme nts Influenza Unknown 06/23/2021 Administered Problems Problem Type SNOMED Code ICD Code Onset Dates Problem Status W/U Status Risk Notes Problem Screening for malignant neoplasm of colon (644905078) Encounter for screening for malignant neoplasm of colon (Z12.11) Active confirmed Problem Preprocedural examination (450024203109171) Preprocedural examination (Z01.818) Active confirmed Problem History of adenomatous polyp of colon (268672823) Hx of adenomatous colonic polyps (Z86.010) Active confirmed Problem Diverticulosis of colon (472626698) Diverticulosis of colon (K57.30) Active confirmed Plan Of Treatment Pending Test Test Name Order Date Pathology 02/09/2022 Future Test Test Name Order Date COLONOSCOPY 01/21/2015 COLONOSCOPY 11/10/2021 Insurance Providers Payer Name Payer Address Payer Phone Subscriber Number Group Number Insured Name Patient Relationship to Insured Coverage Start Date Coverage End Date [facility] [address] [place] [phone] [id number] Self - patient is the insured Medical (General) History Medical History History ICD Code Denies ID,DM,CVA,Lung disease,renal dise ase Elevated cholesterol Diverticulitis in [...]
--- OUTSIDE RECORDS SUMMARY | 2025-07-02 06:25 | XMS_ITS | Data Portability ---
Author Organization [facility], Main Office Address [address] [facility] [address] [place] [id number] Care Team Providers Care [employer] Operations Specialist Name Role Phone CHUCK ALEJANDRE Primary Care Provider JESE SHAW Nut And Bolt Assembler KAMILA COOLEY Lining Finisher JONA KYLE Medical Oncologist [phone] MARLENE NORRIS Hand Tire Trimmer SERAFIN MELGOZA Photographic Hand Developer LEO FENG Medical Oncologist LEO FENG Nut And Bolt Assembler ALYSON RIZZO Photo Journalist Assessment Encounter Date Assessment Date Assessment LastModified by Organization Details LastModified Time 05/28/2020 05/28/2020 This service was provided using telemedicine. Patient consented to video & audio visit Patient was located at at home Provider was located in the office. No other persons participated in the telemedicine visit except for the patient unless otherwise indicated here. Total time of visit was 28 minutes. [email or web address] Not available 05/28/2020 10:31:52 Plan of Treatment Reminders Order Date Submit Date Provider Last Modified By Organization Details Last Modified Time Details Appointments None recorded. Lab lipid panel, serum 2019 020 [facility], [address], [address], 0 19:00:40 CMP, serum or plasma 2019 020 [facility], [address], [place], [address], 0 19:00:39 CBC w/ auto diff 2019 020 [facility], [address], [address], [place], [address], 0 14:53:44 PSA, serum or plasma 2019 020 [facility], [address], [address], [place], [address], 0 19:04:42 rapid flu (A+B) 2018 019 [facility] In-Office Order, Internal Use Only DO Not Attach Compendium DO Not Attach Compendium, Do Not Delete/merge, [id number] 15:40:49 Referral nutritionis t/dietitian referral 2019 020 [email or web address] Not available 0 15:24:19 gastroenter ologist referral - Needs colon cancer screening 2019 020 abolcun Not available 0 15:34:02 Procedures colonoscopy screening (PROC) 2019 020 abolcun Not available 0 15:34:45 Surgeries None recorded. Imaging None recorded. Medication Orders lisinopril 20 mg-hydrochl orothiazide 12.5 mg tablet 2019 020 abolcun [id number], [address] [facility] [place], [address], 1 14:09:24 triamcinolo ne acetonide 0.1 % topical cream 2019 020 abolcun [id number], [address] [facility] [place], [address], 0 13:05:58 Patient TargetsNo targets recorded. Patient Instructions Encounter Date Encounter Id Patient Instructions Last Modified By Organization Details Last Modified Time 08/15/2019 [id number] learning about fever awychowski Not available 08/15/2019 15:22:11 cough: care instructions awychowski Not available 08/15/2019 15:22:11 10/24/2019 [id number] elevated blood pressure: care instructions awychowski Not available 10/24/2019 15:18:20 gastroesophageal reflux disease (GERD): care instructions awychowski Not available 10/24/2019 15:18:20 lange's esophagus: care instructions awychowski Not available 10/24/2019 15:18:21 When You Want to Lose Weight: Care Instructions awychowski Not available 10/24/2019 15:18:21 Nutrition Referr al and Weight Management Follow-up Information awychowski Not available 10/24/2019 15:18:20 learning about colon cancer awychowski Not available 10/24/2019 15:18:21 Eczema: Care Instructions awychowski Not available 10/24/2019 15:18:20 05/28/2020 [id number] gastroesophageal reflux disease (GERD): care instructions pmadden Not available 05/28/2020 10:57:04 peptic ulcer disease: care instructions pmadden Not available 05/28/2020 10:57:04 [facility], all current and discharge medications (OTC, herbal therapies, supplements) reviewed and reconciled with patient and or caregiver, including potential side effects, drug interactions, instructions, and the consequences of not taking medication. Reviewed potential barriers to medication adherence, such as side effects from medication or cost of medication. [email or web address] Not available 05/28/2020 09:18:35 11/03/2020 [id number] advance directiv es: care instructions awychowski Not available 11/05/2020 07:32:21 [facility], all current and discharge medications (OTC, herbal therapies, supplements) reviewed and reconciled with patient and or caregiver, including potential side effects, drug interactions, instructions, and the consequences of not taking medication. Reviewed potential barriers to medication adherence, such as side effects from medication or cost of medication. [email or web address] Not available 11/03/2020 14:05:43 Reason for Referral Photographic Hand Developer Referral for Screening for malignant neoplasm of colon Needs colon cancer screening Referring Physician: Chuck Alejandre [facility], Encounter Date: 10/24/2019 Shuttler/dietitian Refer ral for Body mass index 25-29 - overweight Referring Physician: Chuck Alejandre [facility] Medicine, Encounter Date: 10/24/2019 Results Created Date Observation Date Name Description Value Unit Range Abnormal Flag Note LastModifiedBy Organization Detail LastModifiedTime 08/15/2008/15/2019 rapid flu (A+B) Flu A positi ve Not Available In-Office Order Internal Use Only DO Not Attach Compendium DO Not Attach Compendium, Do Not Delete/merge, [id number] 08/15/2019 15:18:48 08/15/2008/15/2019 rapid flu (A+B) Flu B negati ve Not Available In-Office Order Internal Use Only DO Not Attach Compendium DO Not Attach Compendium, Do Not Delete/merge, [id number] 08/15/2019 15:18:48 10/30/1910/30/2019 CBC w/ auto diff WBC 8.2 K/mm3 (4.0-1 1.0) Not Available [facility] (Centralized Electronic Ordering - All Locations) Patient Can Go To The Location Of Their Choice, 10/30/2019 14:53:44 10/30/1910/30/2019 CBC w/ auto diff RBC 4.74 M/mm3 (4.70- 6.10) Not Available [facility] (Centralized Electronic Ordering - All Locations) Patient Can Go To The Location Of Their Choice, 10/30/2019 14:53:44 10/30/1910/30/2019 CBC w/ auto diff HGB 15.2 gm/dL (13.7- 17.1) Not Available [facility] (Centralized Electronic Ordering - All Locations) Patient Can Go To The Location Of Their Choice, 10/30/2019 14:53:44 10/30/1910/30/2019 CBC w/ auto diff HCT 43.7 % (40.5- 50.0) Not Available [facility] (Centralized Electronic Ordering - All Locations) Patient Can Go To The Location Of Their Choice, 10/30/2019 14:53:44 10/30/1910/30/2019 CBC w/ auto diff MCV 92.2 fL (80.0- 94.0) Not Available [facility] (Centralized Electronic Ordering - All Locations) Patient Can Go To The Location Of Their Choice, 10/30/2019 14:53:44 10/30/1910/30/2019 CBC w/ auto diff MCH 32.1 pg (27.0- 34.0) Not Available [facility] (Centralized Electronic Ordering - All Locations) Patient Can Go To The Location Of Their Choice, 10/30/2019 14:53:44 10/30/1910/30/2019 CBC w/ auto diff MCHC 34.8 g/dL (33.0- 37.0) Not Available [facility] (Centralized Electronic Ordering - All Locations) Patient Can Go To The Location Of Their Choice, 10/30/2019 14:53:44 10/30/1910/30/2019 CBC w/ auto diff plt 236 K/mm3 (150-4 60) Not Available [facility] (Centralized Electronic Ordering - All Locations) Patient Can Go To The Location Of Their Choice, 10/30/2019 14:53:44 10/30/1910/30/2019 CBC w/ auto diff RDW-SD 42.0 fL (<47.0 ) Not Available [facility] (Centralized Electronic Ordering - All Locations) Patient Can Go To The Location Of Their Choice, 10/30/2019 14:53:44 10/30/1910/30/2019 CBC w/ auto diff MPV 9.5 fL (9.4-1 2.4) Not Available [facility] (Centralized Electronic Ordering - All Locations) Patient Can Go To The Location Of Their Choice, 10/30/2019 14:53:44 10/30/1910/30/2019 CBC w/ auto diff automated NRBC 0.0 #/100 _WBC' s Not Available [facility] (Centralized Electronic Ordering - All Locations) Patient Can Go To The Location Of Their Choice, 10/30/2019 14:53:44 10/30/1910/30/2019 CBC w/ auto diff abs. NRBC 0.0 K/mm3 Not Available [facility] (Centralized Electronic Ordering - All Locations) Patient Can Go To The Location Of Their Choice, 10/30/2019 14:53:44 10/30/19 20 10/30/2019 CBC w/ auto diff neut # 5.1 K/mm3 (1.3-7 .0) Not Available [facility] (Centralized Electronic Ordering - All Locations) Patient Can Go To The Location Of Their Choice, 10/30/2019 14:53:44 10/30/1910/30/2019 CBC w/ auto diff lymph # 2.1 K/mm3 (0.8-3 .1) Not Available [facility] (Centralized Electronic Ordering - All Locations) Patient Can Go To The Location Of Their Choice, 10/30/2019 14:53:44 10/30/1910/30/2019 CBC w/ auto diff mono# 0.7 K/mm3 (0.4-1 .3) Not Available [facility] (Centralized Electronic Ordering - All Locations) Patient Can Go To The Location Of Their Choice, 10/30/2019 14:53:44 10/30/1910/30/2019 CBC w/ auto diff eo # 0.2 K/mm3 (0.0-0 .4) Not Available [facility] (Centralized Electronic Ordering - All Locations) Patient Can Go To The Location Of Their Choice, 10/30/2019 14:53:44 10/30/1910/30/2019 CBC w/ auto diff baso # 0.1 K/mm3 (0.0-0 .1) Not Available [facility] (Centralized Electronic Ordering - All Locations) Patient Can Go To The Location Of Their Choice, 10/30/2019 14:53:44 10/30/1910/30/2019 CBC w/ auto diff abs. imm gran 0.1 K/mm3 Not Available [facility] (Centralized Electronic Ordering - All Locations) Patient Can Go To The Location Of Their Choice, 10/30/2019 14:53:44 10/30/1910/30/2019 CBC w/ auto diff neut 61.8 % (44-76 ) Not Available [facility] (Centralized Electronic Ordering - All Locations) Patient Can Go To The Location Of Their Choice, 10/30/2019 14:53:44 10/30/1910/30/2019 CBC w/ auto diff lymph 25.2 % (15-43 ) Not Available [facility] (Centralized Electronic Ordering - All Locations) Patient Can Go To The Location Of Their Choice, 10/30/2019 14:53:44 10/30/1910/30/2019 CBC w/ auto diff monocyte 8.1 % (4.5-1 0.5) Not Available [facility] (Centralized Electronic Ordering - All Locations) Patient Can Go To The Location Of Their Choice, 10/30/2019 14:53:44 10/30/1910/30/2019 CBC w/ auto diff eo 2.9 % (0-6) Not Available [facility] (Centralized Electronic Ordering - All Locations) Patient Can Go To The Location Of Their Choice, 10/30/2019 14:53:44 10/30/1910/30/2019 CBC w/ auto diff baso 0.7 % (0-2) Not Available [facility] (Centralized Electronic Ordering - All Locations) Patient Can Go To The Location Of Their Choice, 10/30/2019 14:53:44 10/30/1910/30/2019 CBC w/ auto diff imm gran 1.3 % Not Available [facility] (Centralized Electronic Ordering - All Locations) Patient Can Go To The Location Of Their Choice, 10/30/2019 14:53:44 10/30/1910/30/2019 CMP, serum or plasm a glucose 89 mg/dL (70-99 ) Not Available [facility] (Centralized Electronic Ordering - All Locations) Patient Can Go To The Location Of Their Choice, 10/30/2019 19:00:39 10/30/1910/30/2019 CMP, serum or plasm a BUN 14 mg/dL (6-20) Not Available [facility] (Centralized Electronic Ordering - All Locations) Patient Can Go To The Location Of Their Choice, 10/30/2019 19:00:39 10/30/1910/30/2019 CMP, serum or plasm a creatinine 1.0 mg/dL (0.7-1 .2) Not Available [facility] (Centralized Electronic Ordering - All Locations) Patient Can Go To The Location Of Their Choice, 10/30/2019 19:00:39 10/30/1910/30/2019 CMP, serum or plasm a sodium 139 mmol/ L (133-1 45) Not Available [facility] (Centralized Electronic Ordering - All Locations) Patient Can Go To The Location Of Their Choice, 10/30/2019 19:00:39 10/30/1910/30/2019 CMP, serum or plasm a potassium 4.3 mmol/ L (3.6-5 .2) Not Available [facility] (Centralized Electronic Ordering - All Locations) Patient Can Go To The Location Of Their Choice, 10/30/2019 19:00:39 10/30/1910/30/2019 CMP, serum or plasm a chloride 96 mmol/ L (98-10 7) low Not Available [facility] (Centralized Electronic Ordering - All Locations) Patient Can Go To The Location Of Their Choice, 10/30/2019 19:00:39 10/30/1910/30/2019 CMP, serum or plasm a bicarbonate 26 mmol/ L (22-29 ) Not Available [facility] (Centralized Electronic Ordering - All Locations) Patient Can Go To The Location Of Their Choice, 10/30/2019 19:00:39 10/30/1910/30/2019 CMP, serum or plasm a anion gap 17 (4-17) Not Available [facility] (Centralized Electronic Ordering - All Locations) Patient Can Go To The Location Of Their Choice, 10/30/2019 19:00:39 10/30/1910/30/2019 CMP, serum or plasm a albumin 4.9 gm/dL (3.4-4 .8) high Not Available [facility] (Centralized Electronic Ordering - All Locations) Patient Can Go To The Location Of Their Choice, 10/30/2019 19:00:39 10/30/1910/30/2019 CMP, serum or plasm a calcium 9.9 mg/dL (8.6-1 0.5) Not Available [facility] (Centralized Electronic Ordering - All Locations) Patient Can Go To The Location Of Their Choice, 10/30/2019 19:00:39 10/30/1910/30/2019 CMP, serum or plasm a bilirubin,to kyle 1.0 mg/dL (0-1.2 ) Not Available [facility] (Centralized Electronic Ordering - All Locations) Patient Can Go To The Location Of Their Choice, 10/30/2019 19:00:39 10/30/1910/30/2019 CMP, serum or plasm a total protein 7.5 gm/dL (6.2-8 .2) Not Available [facility] (Centralized Electronic Ordering - All Locations) Patient Can Go To The Location Of Their Choice, 10/30/2019 19:00:39 10/30/1910/30/2019 CMP, serum or plasm a Ag ratio 1.9 Not Available [facility] (Centralized Electronic Ordering - All Locations) Patient Can Go To The Location Of Their Choice, 10/30/2019 19:00:39 10/30/1910/30/2019 CMP, serum or plasm a AST 21 U/L (0-38) Not Available [facility] (Centralized Electronic Ordering - All Locations) Patient Can Go To The Location Of Their Choice, 10/30/2019 19:00:39 10/30/1910/30/2019 CMP, serum or plasm a alk phos 63 U/L (40-12 9) Not Available [facility] (Centralized Electronic Ordering - All Locations) Patient Can Go To The Location Of Their Choice, 10/30/2019 19:00:39 10/30/1910/30/2019 CMP, serum or plasm a ALT 21 U/L (0-41) Not Available [facility] (Centralized Electronic Ordering - All Locations) Patient Can Go To The Location Of Their Choice, 10/30/2019 19:00:39 10/30/1910/30/2019 CMP, serum or plasm a est GFR non 84 mL/mi n/1.7 3_M2 Creat inine based estim ated glome rular filtr ation rate (eGFR ) is calcu lated using the Chron ic Kidne y Disea se Epide miolo gy Colla borat ion (CKD- EPI). The CKD-E PI creat inine equat ion has not been valid ated in child bron[place] (<18 years ), pregn ant women or in some racia l or ethni c subgr oups other than Cauca sians and Afric an Ameri cans. Not Available [facility] (Centralized Electronic Ordering - All Locations) Patient Can Go To The Location Of Their Choice, 10/30/2019 19:00:39 10/30/1910/30/2019 CMP, serum or plasm a est GFR 98 mL/mi n/1.7 3_M2 Creat inine based estim ated glome gloriar filtr ation rate (eGFR ) is calcu lated using the Chron ic Kidne y Disea se Epide miolo gy Colla borat ion (CKD- EPI). The CKD-E PI creat inine equat ion has not been valid ated in child bron[place] (<18 years ), pregn ant women or in some racia l or ethni c subgr oups other than Cauca sians and Afric an Ameri cans. Not Available [facility] (Centralized Electronic Ordering - All Locations) Patient Can Go To The Location Of Their Choice, 10/30/2019 19:00:39 10/30/1910/30/2019 lipid panel , serum cholesterol, total 216 mg/dL (<200) high Not Available [facility] (Centralized [facility] Ordering - All Locations) Patient Can Go To The Location Of Their Choice, 10/30/2019 19:00:40 10/30/1910/30/2019 lipid panel , serum triglyceride 238 mg/dL (<150) high Not Available [facility] ([facility] Order[facility] - All Locations) Patient Can Go To The Location Of Their Choice, 10/30/2019 19:00:40 10/30/1910/30/2019 lipid panel , serum HDL chol 61 mg/dL (>39) Not Available [facility] (Centralized Electronic Ordering - All Locations) Patient Can Go To The Location Of Their Choice, 10/30/2019 19:00:40 10/30/1910/30/2019 lipid panel , serum LDL cholesterol, calculated 107 mg/dL (0-130 ) Not Available [facility] (Centralized Electronic Ordering - All Locations) Patient Can Go To The Location Of Their Choice, 10/30/2019 19:00:40 10/30/1910/30/2019 lipid panel , serum non HDL cholesterol (calc) 155 mg/dL (<160) Not Available [facility] (Centralized [facility] Ordering - All Locations) Patient Can Go To The Location Of Their Choice, 10/30/2019 19:00:40 10/30/1910/30/2019 PSA, serum or plasm a PSA 0.6 NG/mL (0-4) TEST PERFO RMED USING THE FLORENCIA ELECT FLORENCIA MILLU MINES CENCE TOTAL PSA ASSAY . PSA VALUE S OBTAI TENZIN WITH OTHER ASSAY METHO DS OR KITS CANNO T BE USED INTER SEGAL EABLY . Not Available [facility] (Centralized Electronic Ordering - All Locations) Patient Can Go To The Location Of Their Choice, [id number] 10/30/2019 19:04:42 05/07/20 20 05/04/2020 XR, chest No observ ation record ed. awychowski Not Available 05/07 12:50:04 05/07/20 20 05/05/2020 CT, abdom en, w/o contr ast No observ ation record ed. [email or web address] Not Available 05/07 12:50:04 05/07/20 20 05/04/2020 CT, angio gram, chest , w/ contr ast No observ ation record ed. [email or web address] Not Available 05/07 12:50:04 05/07/20 CT, head + brain , w/o contr ast No observ ation record ed. [email or web address] Not Available 05/07 12:50:04 05/07/20 20 05/05/2020 CT, abdom en + pelvi s, w/ contr ast No observ ation record ed. awychowski Not Available 05/07 12:50:05 01/06/20 21 12/29/2020 US, duple x, lower extre mity No observ ation record ed. [email or web address] Not Available 01/07 12:34:40 Result Notes None recorded. Problems Name Problem SNOMED Code Status Onset Date Resolution Date Notes Provider Name and Address Organization Details Recorded Time Lange's esophagus 063278836 Active Aline Jerry guy, [facility] 0 14:55:35 History of polyp of colon 092600905 Active Aline Jerry guy, [facility] 0 14:55:34 Hyperchol esterolem ia 73913052 Active Aline Jerry null, [facility] 0 14:55:35 Hypertens willie disorder 14489600 Active Aline Jerry null, [facility] 0 14:55:34 Pain of hip region 43917511 Completed 08/17/2016 Chuck Alejandre MD [address], [place], [address] , [facility] 6 14:21:00 Overweigh t 144633577 Completed 08/17/2016 Chuck Alejandre MD [address], [place], [address] , [facility] 6 14:20:34 Pain in buttock 436098680 Completed 08/17/2016 Chuck Alejandre MD [address], [place], [address] , [facility] 6 14:20:39 Backache with radiating pain 120747768 Active Aline Jerry null, [facility] 0 14:55:34 Lumbosacr al radiculit is 37202162 Active L4/5-P SSP Aline Jerry null, [facility] 0 14:55:34 Prolapsed lumbar intervert ebral disc 880771308 Active Aline Jerry null, [facility] 0 14:55:34 Lumbosacr al radiculop athy 3263245 Completed 10/18/2018 Chuck Alejandre MD [address] [facility] [address], [place], [address] , [facility] 9 14:24:19 Panic attack 511835066 Active Aline Jerry null, [facility] 0 14:55:35 Body mass index 25-29 - overweigh t 194342636 Completed 10/24/2019 Clari Sevilla MA null, [facility] 0 14:37:13 Generaliz ed anxiety disorder 51338111 Active Aline Jerry null, [facility] 0 14:55:35 Malignant melanoma 512385546 Active Alineearnestine tovar, [facility] 0 14:55:34 Gastroeso phageal reflux disease 853898640 Active 2013 Alineariel tovar, [facility] 0 14:55:35 Essential hypertens ion 69498711 Active 2013 Aline Jerryariel tovar, [facility] 0 14:55:34 Osteochon dral defect of talus 489808616 Active 2017 Aline tovar, [facility] 0 14:55:35 Lumbar disc disorder with myelopath y Active 2017 Alineariel tovar, [facility] 0 14:55:34 Lumbar radiculop athy 832710383 Active 2017 Aline Jerry [facility], [facility] 0 14:55:34 History of malignant melanoma of the skin 28496352428 8 Completed 201810/24/2019 Chuck Alejandre MD [address] [facility] [address], [place], [address] , [facility] 0 14:59:44 Pain of left wrist 14955752414 9102 Completed 201810/24/2019 Chuck Alejandre MD [address] [facility] [address], [place], [address] , [facility] 0 15:09:44 Electroca rdiogram abnormal 585478994 Active 2018 Aline Jerry guy, [facility] 0 14:55:35 Excision of melanoma Active 2018 Aline Jerry guy, [facility] 0 14:55:35 Malignant melanoma of skin 52480779 Active 2018 Aline Rosalino tovar, [facility] 0 14:55:35 Metastati c malignant neoplasm to liver 64712206 Active 2019 Aline tovar [facility] 0 14:55:34 Metastati c malignant melanoma 422508716 Active 2020 Chuck Alejandre MD [address] [facility], [place], [address] , [facility] 14:28:28 Problem Notes None recorded. Procedures Surgical History Date Name Laterality Status Provider Name and Address Organization Details Recorded Time 11/04/19 21 Advanced Care Planning completed Chuck Alejandre MD [address] [address], [place], [address], [facility] 11/05/2020 07:27:33 10/27/19 21 cardiac catheterization completed Aline Jerry [facility] 10/29/2020 13:10:33 07/01/20 19 selective neck dissection of cervical lymph nodes completed Chuck Alejandre MD [address] [address], [place], [address], [facility] 07/03/2019 08:40:19 05/27/20 19 laryngoscopy completed Chuck Alejandre MD [address] [address], [place], [address], [facility] 06/01/2019 10:59:13 03/17/20 17 colonoscopic polypectomy completed Omaira morgan MA [facility] 08/15/2019 14:41:31 09/04/19 16 Excision of Melanoma completed Chuck Alejandre MD [address] [address], [place], [address], [facility] 10/11/2017 10:37:46 03/17/20 14 EGD completed Chuck Alejandre MD [address] [address], [place], [address], [facility] 01/16/2015 13:08:49 09/23/19 01 Vasectomy completed Clari Sevilla MA [facility] 10/11/2017 09:45:14 Imaging Results None recorded. Procedure Notes None recorded. Medical Equipment None Reported. Allergies Allergen ID Allergen Name Allergen Category Reaction Reaction Severity Criticality Documentation Date Start Date Code Code System Note Provider Name and Address Organization Details Recorded Time 01258 latex environme nt,medica tion rash mild Not available 04/10/20142019 44104 91 RxNorm Jami Jeremiah tovar [facility] 0 15:00:35 Medications Name Sig Start Date Stop Date Status Note LastModified by Organization Details LastModified Time sertralin e hcl 25 mg tabs active Not Available Not Available Not Available omeprazol e 20 mg cpdr active Not Available Not Available Not Available ure-na 15 gm pack 15 g once a day 11/13 completed Not Available Not Available Not Available metoprolo l tartrate 25 mg tabs active Not Available Not Available Not Available crestor 20 mg tabs active Not Available Not Available Not Available lisinopri l/hydroch lorothiaz mando 20-12.5 mg tabs active Not Available Not Available Not Available clonazepa m 0.5 mg tabs active Not Available Not Available Not Available cyclobenz aprine 10 mg tablet Take 1 tablet twice a day by oral route as needed for 7 days. 04/24 completed Not Available Not Available Not Available amoxicill in 500 mg capsule TAKE 1 CAPSULE BY MOUTH 3 TIMES A DAY FOR 8 DAYS 11/03 completed Not Available Not Available Not Available furosemid e 40 mg tablet TAKE 1 TABLET BY MOUTH TWICE A DAY active Not Available Not Available No t Available prednison e 10 mg tablet TAKE 1 TABLET BY MOUTH EVERY DAY 11/03 completed Not Available Not Available Not Available torsemide 20 mg tablet Take 2 tablets twice a day by oral route. active Not Available Not Available No t Available morphine concentra te 100 mg/5 mL (20 mg/mL) oral solution TAKE 0.25 ML BY MOUTH EVERY HOUR NEEDED FOR SEVERE PAIN active Not Available Not Available No t Available lisinopri l 20 mg-hydroc hlorothia zide 12.5 mg tablet Take 1 tablet every day by oral route. 11/03 completed Not Available Not Available Not Available azithromy nancy 250 mg tablet TAKE 2 TABLETS BY MOUTH TODAY, THEN TAKE 1 TABLET DAILY FOR 4 DAYS 11/03 completed Not Available Not Available Not Available tizanidin e 4 mg tablet Take 1 tablet every 6 hours by oral route as needed for 5 days. 10/18 completed Not Available Not Available Not Available metoprolo l succinate ER 50 mg tablet,ex tended release 24 hr TAKE 1 TABLET BY MOUTH EVERY DAY active Not Available Not Available No t Available levetirac etam 500 mg tablet TAKE 1 TABLET BY MOUTH TWICE A DAY active Not Available Not Available No t Available hydrocodo ne 5 mg-acetam inophen 325 mg tablet Take 1 tablet every day by oral route at bedtime for 5 days. 04/22 completed Not Available Not Available Not Available senna 8.6 mg tablet Take 2 tablets every day by oral route for 30 days. 11/03 completed Not Available Not Available Not Available ondansetr on HCl 8 mg tablet active Not Available Not Available No t Available sucralfat e 1 gram tablet Take 1 tablet by oral route for 30 days. 11/03 completed Not Available Not Available Not Available ondansetr on HCl 4 mg tablet TAKE 1 TABLET BY MOUTH EVERY 8 HOURS NEEDED FOR NAUSEA AND VOMITING active Not Available Not Available No t Available prednison e 20 mg tablet Take 2 tablets every day by oral route as directed for 21 days. 11/03 completed 05/28 weening down Not Available Not Available Not Available clonazepa m 0.5 mg tablet Take 0.5 tablets every day by oral route. 11/03 completed Not Available Not Available Not Available sodium chloride 1 gram tablet Take 1 tablet 3 times a day by oral route for 30 days. active Not Available Not Available No t Available amlodipin e 5 mg tablet Take 1 tablet every day by oral route for 90 days. 11/03 completed Not Available Not Available Not Available prochlorp erazine maleate 10 mg tablet Take 1 tablet every 6 hours by oral route. active Not Available Not Available No t Available sulfameth oxazole 800 mg-trimet hoprim 160 mg tablet Take 1 tablet 3 times a week by oral route as directed for 30 days. 11/03 completed Not Available Not Available Not Available triamcino lone acetonide 0.1 % topical cream APPLY A THIN LAYER TO THE AFFECTED AREA(S) BY TOPICAL ROUTE 2 TIMES PER DAY needed for 10-14 days 02/24 completed Not Available Not Available Not Available carvedilo l 3.125 mg tablet TAKE 4 TABLETS (12.5 MG TOTAL) BY MOUTH 2 (TWO) TIMES A DAY WITH MEALS active Not Available Not Available No t Available hydromorp mc 2 mg tablet active Not Available Not Available Not Available famotidin e 20 mg tablet PLEASE SEE ATTACHED FOR DETAILED DIRECTIO NS 11/03 completed Not Available Not Available Not Available metoclopr amide 5 mg tablet active Not Available Not Available No t Available triamcino lone acetonide 0.025 % topical cream APPLY A THIN FILM TO AFFECTED AREA TWICE A DAY NEEDED FOR ITCH. MAY APPLY MOISTURI ZER SOON AFTER 11/03 completed Not Available Not Available Not Available dexametha sone 1 mg tablet TAKE 1 TABLET BY MOUTH DAILY active Not Available Not Available No t Available dexametha sone 2 mg tablet PLEASE SEE ATTACHED FOR DETAILED DIRECTIO NS 11/03 completed Not Available Not Available Not Available pantopraz ole 40 mg tablet,de layed release Take 1 tablet every day by oral route for 30 days. active Not Available Not Available No t Available oseltamiv ir 75 mg capsule Take 1 capsule twice a day by oral route for 5 days. 10/24 completed Not Available Not Available Not Available dexametha sone 4 mg tablet TAKE 1 TABLET BY MOUTH TWICE A DAY FOR 7 DAYS 11/03 completed Not Available Not Available Not Available prednison e 50 mg tablet Take 1 tablet every day by oral route for 7 days. 05/28 completed Not Available Not Available Not Available polymyxin B sulfate 10,000 unit-trim ethoprim 1 mg/mL eye drops 02/24 completed Not Available Not Available Not Available sertralin e 25 mg tablet Take 1 tablet every day by oral route for 30 days. 2014 active Not Available Not Available Not Avai lable omeprazol e 20 mg capsule,d elayed release TAKE ONE CAPSULE BY MOUTH EVERY DAY active Not Available Not Available No t Available enoxapari n 150 mg/mL subcutane ous syringe INJECT THE CONTENTS OF 1 SYRINGE SUBCUTAN EOUSLY EVERY DAY active Not Available Not Available No t Available hydroxyzi ne HCl 25 mg tablet Take by oral route for 15 days. 02/24 completed Not Available Not Available Not Available lisinopri l 5 mg tablet Take 1 tablet every day by oral route for 30 days. active Not Available Not Available No t Available gabapenti n 100 mg capsule Take one tablet at bedtime on day one, then one tablet 2 times per day on day 2, then one tablet 3x/day thereaft er 2013 active Not Available Not Available Not Avai lable fluticaso ne propionat e 50 mcg/actua tion nasal spray,stef pension active Not Available Not Available Not Available sertralin e 50 mg tablet Take 1 tablet every day by oral route for 90 days. active Not Available Not Available No t Available lorazepam 2 mg/mL oral concentra te TAKE 0.25 ML BY MOUTH EVERY HOUR NEEDED FOR RESTLESS NESS AND ANXIETY active Not Available Not Available No t Available naproxen 500 mg tablet Take by oral route for 28 days. 07/23 completed Not Available Not Available Not Available amoxicill in 875 mg-potass ium clavulana te 125 mg tablet active Not Available Not Available Not Available oxycodone 5 mg tablet TAKE 1 TABLET BY MOUTH EVERY 6 HOURS NEEDED FOR MODERATE SEVERE PAIN active Not Available Not Available No t Available hydroxyzi ne pamoate 25 mg capsule Take 1 capsule 4 times a day by oral route as needed for 7 days. 11/03 completed itching Not Available Not Available Not Available enoxapari n 100 mg/mL subcutane ous syringe INJECT 1ML SUBCUTAN EOUSLY EVERY 12 HOURS active Not Available Not Available No t Available rosuvasta tin 20 mg tablet Take 1 tablet every day by oral route for 90 days. 2020 active Not Available Not Available Not Avai lable omeprazol e magnesium 20 mg tablet,de layed release Take 20 mg by oral route. 11/03 completed Not Available Not Available Not Available metoprolo l tartrate 25 mg tablet Take 1 tablet twice a day by oral route for 90 days. 01/12 completed Not Available Not Available Not Available MoviPrep 100 gram-7.5 gram-2.69 1 gram oral powder packet active Not Available Not Available Not Available Gavilax 17 gram/dose oral powder Take 17 g every day by oral route as needed for 30 days. 11/03 completed Not Available Not Available Not Available Senexon-S 8.6 mg-50 mg tablet TAKE 1 TABLET BY MOUTH TWO TIMES A DAY; HOLD IF HAVING DIARRHEA active Not Available Not Available No t Available Eliquis 5 mg tablet active Not Available Not Available No t Available Readi-Cat 2 2 % (w/v) oral suspensio n TAKE DIRECTED active Not Available Not Available No t Available Shingrix (PF) 50 mcg/0.5 mL intramusc ular suspensio n, kit 02/24 completed Not Available Not Available Not Available nivolumab 240 mg/24 mL intraveno us solution INFUSE 240 MG OVER 30 MINUTE(S ) BY INTRAVEN OUS ROUTE EVERY 4 WEEKS 11/03 completed for melanoma Not Available Not Available Not Available Plenvu 140 gram-9 gram-5.2 gram powder packs 04/18 completed Not Available Not Available Not Available Vitals Date Recorded Body height Body mass index (BMI) Body weight Heart rate Body temperature Oxygen saturation Oxygen saturation in Arterial blood by Pulse oximetry Systolic And Diastolic Systolic And Diastolic Provider Name and Address Organization Details Last Updated DateTime 0 182.88 cm 29.3 kg/m2 29972.9 5 g 80 /min 98.7 [degF] 98 % 98 % 152/92 mm[Hg] 151/97 mm[Hg] Clari Sevilla [facility] 0 14:42:25 Date Recorded Body height Body mass index (BMI) Body weight Body temperature Heart rate Oxygen saturation Oxygen saturation in Arterial blood by Pulse oximetry Systolic And Diastolic Provider Name and Address Organization Details Last Updated DateTime 1 182.88 cm 27.9 kg/m2 17402.0 3 g 98.24 [degF] 97 /min 98 % 98 % 116/76 mm[Hg] Clari [facility] 1 14:17:47 Date Recorded Body height Body mass index (BMI) Body weight Body temperature Heart rate Oxygen saturation Oxygen saturation in Arterial blood by Pulse oximetry Systolic And Diastolic Provider Name and Address Organization Details Last Updated DateTime 0 182.88 cm 29 kg/m2 07383.7 7 g 98.42 [degF] 78 /min 98 % 98 % 117/80 mm[Hg] Clari Sevilla MA [facility] 0 13:09:29 Date Recorded Body height Body mass index (BMI) Body weight Systolic And Diastolic Provider Name and Address Organization Details Last Updated DateTime 05/28/2020 182.88 cm 27.7 kg/m2 52377.84 g 132/83 mm[Hg] Omaira [facility]ina [facility] 05/28/2020 09:41:55 Date Recorded Body height Body mass index (BMI) Body weight Body temperature Oxygen saturation Oxygen saturation in Arterial blood by Pulse oximetry Heart rate Systolic And Diastolic Provider Name and Address Organization Details Last Updated DateTime 9 182.88 cm 29 kg/m2 05469.3 3 g 99.1 [degF] 98 % 98 % 88 /min 136/68 mm[Hg] Omaira luna [facility] 9 14:44:25 Social History Question Answer Notes LastModified by Organizat ion Details LastModified Time Tobacco Smoking Status Former Smoker Quit 1986 Chuck Alejandre MD [address], [address], [facility] 10/11/2017 10:37:16 Do You Have An Advance Directive? Yes HCP/ -Thien serrano Information not available 08/17/2016 Animal Exposure? Yes Informat ion not available 04/10/2014 Do You Wear A Helmet When Biking? Yes Information not available 04/10/2014 Is Blood Transfusion Acceptable In An Emergency? Yes Information not available 04/10/2014 What Is Your Level Of Caffeine Consumption? Occasional 1 Cup Of Coffee A Day Information not available 07/16/2015 How Much Tobacco Do You Chew? None Information not available 04/10/2014 In The 14 Days Before Symptom Onset, Have You Had Close Contact With A Laboratory-confi rmed COVID-19 While That Case Was Ill? No Information not available 02/25/2020 In The 14 Days Before Symptom Onset, Have You Had Close Contact With A Person Who Is Under Investigation For COVID-19 While That Person Was Ill? No Information not available 02/25/2020 Have You Been To An Area Known To Be High Risk For COVID-19? No Information not available 02/25/2020 What Type Of Diet Are You Following? REGULAR Information not available 04/10/2014 Which Illicit Or Recreational Drugs Have You Used? None Information not available 07/16/2015 Education 12 Information not available 04/10/2014 Have There Been Any Changes To Your Family Or Social Situation? No Information not available 04/10/2014 How Many Days In The Past Year Have You Had A Heavy Drinking Consumption (4+ Female, 5+ Male)? 40 Information not available 04/10/2014 Are There Any Guns Present In Your Home? Yes Information not available 04/10/2014 What Is Your Home Situation? Relatives Information not available 04/10/2014 Legally Blind In One Or Both Eyes? No Information not available 04/10/2014 Live Alone Or With Others? With Others (Thien) And Children, 3 Cats Information not available 07/16/2015 Do You Take Precautions To Prevent Distracted Driving? Yes Information not available 07/16/2015 How Often Do You Need To Have Someone Help You When You Read Instructions, Pamphlets, Or Other Written Material From Your Doctor Or Pharmacy? Never Information not available 07/16/2015 Have You Served In The ? No Information not available 08/17/2016 Have You Or Anyone In Your Household Had Any Of The Following Symptoms In The Last 14 Days: Sore Throat, Cough, Chills, Body Aches For Unknown Reasons, Shortness Of Breath For Unknown Reasons, Loss Of Smell, Loss Of Taste, Fever At Or Greater Than 100 Degrees Fahrenheit? No Information not available 05/28/2020 Are You Or Anyone In Your Household A Health Care Provider Or Emergency Responder? No Information not available 05/28/2020 To The Best Of Your Knowledge Have You Been In Close Proximity To Any Individual Who Tested Positive For COVID-19? No Information not available 05/28/2020 Marital Status Informatio n not available 04/10/2014 What Was The Date Of Your Most Recent Tobacco Screening? 05/28/2020 Information not available 05/28/2020 Total Number Of Stairs In Home 20 Information not available 04/10/2014 How Many Children Do You Have? 2 Daughters Information not available 04/10/2014 Do You Use Protection During Sex? No Information not available 04/10/2014 Difficulty Reading? No Information not available 04/10/2014 What Is Your Relationship Status? Information not available 04/10/2014 Seat Belts Used Routinely Yes Information not available 04/10/2014 Are You Sexually Active? Yes Information not available 04/10/2014 Smoke Alarm In Home Yes Information not available 07/16/2015 At What Age Did You Start Smoking Tobacco? 17 Information not available 10/18/2018 Are You Passively Exposed To Smoke? Yes Information not available 07/16/2015 How Much Tobacco Do You Smoke? 2 PPW Information not available 08/17/2016 Do You Use Sunscreen Routinely? Yes Information not available 04/10/2014 How Many Years Have You Smoked Tobacco? 2 Information not available 08/17/2016 Do You Have Difficulty Walking Or Climbing Stairs? No Information not available 04/10/2014 Sex: Unknown Functional Status Question Answer Note LastModified by Organizat ion Details LastModified Time Do you use any illicit or recreational drugs? No Information not available 04/10/2014 What is your level of alcohol consumption? Moderate Information not available 04/10/2014 Do you or have you ever used smokeless tobacco? Never used smokeless tobacco Information not available 08/15/2019 Are you currently employed? Yes Information not available 04/10/2014 Difficulty driving at night? No Information not available 04/10/2014 Are you able to care for yourself independently? Yes Information not available 04/10/2014 What is your occupation? [employer] Information not available 08/15/2019 Do you have difficulty dressing, bathing, grooming, or toileting? No Information not available 04/10/2014 Do you or have you ever used e-cigarettes or vape? Never used electronic cigarettes Information not available 08/15/2019 What is your exercise level? Occasional Information not available 08/17/2016 Mental Status Question Answer Note LastModified by Organization D etails LastModified Time Do you have difficulty concentrating, remembering or making decisions? No Information no t available 04/10/2014 Family History Relationship Description Onset Age of this Age Resolved Age Notes LastModified by Organization Details LastModified Time Sister Malignant neoplastic disease 55 constantin charles Not available 05/28/2020 08:04:51 Sister Well adult Not availabl e 05/28/2020 08:04:51 Sister Well adult Not availabl e 05/28/2020 08:04:51 Father Malignant neoplastic disease 61 Constantin charles Not available 05/28/2020 08:04:51 Mother Chronic obstructive pulmonary disease abolcun Not available 2017 09:44:49 Brother Well adult Not availab le 05/28/2020 08:04:51 Brother Well adult Not availab le 05/28/2020 08:04:51 Brother Malignant neoplastic disease Not available 2019 08:04:51 Daughter Well adult Not availa ble 05/28/2020 08:04:51 Daughter Well adult Not availa ble 05/28/2020 08:04:51 Medical History Condition Response Other N Gout N Kidney Stones N Blood Diseases N Hyperthyroidism N Breast Cancer N Lung Disease N Hypothyroidism N Depression N COPD N Defects or Inherited Disease N Anesthesia Complications N Headaches/Migraines N Varicose Veins N Anxiety Disorder N Obesity N Vision or Eye Problems N Arthritis N Head Injury/Concussion N Polyps N Infertility N Congenital Anomalies N Acid Reflux (GERD) Y Cancer N Stroke N ADHD N Endometriosis N High Cholesterol Y Liver Disease N Fibromyalgia N Kidney Disease N Heart Problems N Ear or Hearing Problems Y Hospitalizations N Thyroid Problems N GI Problems N Acne N Skin Problems N Eating Disorder N Anemia N Constipation N Bladder Problems N Mental Illness N Ovarian Cancer N Diabetes N Blood Transfusions N Seizures/Epilepsy N Tuberculosis N AIDS/HIV N Congestive Heart Failure (CHF) N Eczema N Diverticulitis N Abuse/Domestic Violence N Asthma N Allergies N Reflux/GERD Y Hepatitis N Pulmonary Embolism N Hypertension Y Osteoporosis N Chicken Pox N Autism Spectrum Disorder (ASD) N Immunizations Vaccine Type Date Status Note Provider Nam e and Address Organization Details Recorded Time Pneumococcal Conjugate, unspecified formulation 9 completed Aline tovar [facility] 08/25/2020 14:55:35 zoster recombinant 0 completed Aline tovar [facility] 08/25/2020 14:55:35 Influenza, split virus, quadrivalent, preservative 1 completed ANNIKA Adames [facility] 11/03/2020 14:18:08 COVID-19, mRNA, LNP-S, PF, 100 mcg/0.5mL dose or 50 mcg/0.25mL dose 1 completed ANNIKA Adames [facility] 11/03/2020 14:18:27 Influenza, split virus, quadrivalent, PF 5 completed Not Available [facility] 09/21/2019 02:22:02 Tdap 5 completed Not Available [facility] 09/21/2019 02:21:45 Influenza, split virus, quadrivalent, PF 6 completed Not Available [facility] 09/21/2019 02:22:07 Influenza, split virus, quadrivalent, PF 8 completed Not Available [facility] 09/21/2019 02:22:16 Influenza, split virus, quadrivalent, PF 9 completed Not Available [facility] 09/21/2019 02:22:10 Influenza, split virus, trivalent, PF 4 completed Not Available [facility] 09/21/2019 02:21:58 Past Encounters Encounter ID Performer Location Encounter Start Date Encounter Closed Date Diagnosis/Indication Diagnosis SNOMED-CT Code Diagnosis ICD10 Code Diagnosis IMO Codes Diagnosis Note [id number] Chuck Alejandre MD Main Office [address] [facility] [address] [place] [address] 04/10/2014 10:34:04 04/10/2014 11:43:16 Adult health examination 856707587 Immunizati on status utd. Will screen based on risk factors. Colon cancer screening current. Prostate cancer screening recenly done by prior PCP. Sunscreen and seatbelt use advised. Regular dental and ophtho care advised. Distracted driving and advance directives discussed. Hypercholesterolemia 56329555 Hypertensive disorder 56536956 Lange's esophagus 633474247 Due for f/u in 5yrs unless symptoms develop. Pain of hip region 75473304 c/w piriformis medicated pain. Printed info including home PT provided. Call inb/worse. Overweight 040473573 Long temr potential health consequenc es discussed. Healthy diet and exercise habits advised. [id number] Chuck Alejandre MD Main Office [address] [facility] [address] [place] [address] 04/17/2014 12:52:27 04/17/2014 13:40:40 Pain in buttock 870539662 Still suspicious for piriformis strain and secondary radiculopa thy. Will add muscle relaxant and try short course of prednisone as well as PT. If not better/wor se will need lumbar spine imaging. [id number] PIPPA Lam Main Office [address] [place] [place] [address] [place] [address] 04/24/2014 07:46:14 04/24/2014 08:30:06 Backache with radiating pain 208916075 worsening, started a month ago, tx with short course of prednisone and gabapentin (disc. sedatory affect), we will set up appt for PVSS [id number] Chuck Alejandre MD Main Office [address] [place] [place] [address] [place] [address] 07/17/2014 15:13:48 07/17/2014 16:16:28 Essential hypertension 74347184 Well controlled and regimen tolerated. Continue as is. Current exercise habits limitid by discogenic back pain which is being evaluated and slowly improving. Plan to resume activity as tolerated. Hypercholesterolemia 41861016 LDL at goal and current dose well tolerated. Continue current regimen. Needs infl uenza immunization 058484918 Gastroesop hageal reflux disease 968505098 Symptoms well controlled without warning signs. Following with GI. Continue current regimen. [id number] Chuck Alejandre MD Main Office [address] [place] [address] [place] [address] 01/16/2015 12:27:01 01/16/2015 13:22:13 Hypercholesterolemia 03356588 LDL at goal and current dose well tolerated. Continue current regimen. Essential hypertension 84812279 Well controlled and regimen tolerated. Continue as is. Panic attack 723151557 Alonzo l try PRN med and counseling for now. If persistent /worse would consider/d iscuss other medication options. Gastroesop hageal reflux disease 269588344 Symptoms well controlled without warning signs. Following with GI. Continue current regimen. [id number] Chuck Alejandre MD Main Office [address] [facility] [address] [place] [address] 07/16/2015 12:39:57 07/16/2015 14:08:07 Adult health examination 819597737 Z00.01 Will update immunizati on status, screening utd based on risk factors. Colon cancer screening current. Regular dental and ophtho care advised as well as sunscreen and seatbelt use. Distracted driving and advance directives discussed. Needs infl uenza immunization 582475851 Z23 Body mass index 25-29 - overweight 466296208 E66.3 Generalize d anxiety disorder 42297458 F41.1 Seeing a therpaist but symptoms are poorly controlled . Will add SSRI and titrate dose as tolerated to goal. Essential hypertension 50599053 I10 Well controlled and regimen tolerated. Continue as is. Administra tion of diphtheria, pertussis, and tetanus vaccine 968016549 Z23 Malignant melanoma 23906 4006 C43.9 Recent diagnosis s/p excision. Will request derm notes. [id number] Chuck Alejandre MD Main Office [address] [facility] [address] [place] [address] 10/15/2015 13:16:00 10/15/2015 14:05:41 Essential hypertension 81823826 I10 Well controlled and regimen tolerated. Continue as is. Generalize d anxiety disorder 73107026 F41.1 Much better but some potential lingering symptoms. Will titrate SSRI dose and monitor. Hypercholesterolemia 136 66741 E78.0 LDL at goal and current dose well tolerated. Continue current regimen. [id number] Chuck Alejandre MD Main Office [address] [facility] [address] [place] [address] 01/13/2016 14:19:40 01/13/2016 15:09:28 Essential hypertension 55876411 I10 Well controlled on recheck and regimen tolerated. Continue as is. Panic attack 758833798 F 41.0 Much improved on SSRI. Continue current dose. Generalize d anxiety disorder 91501670 F41.1 Well controlled on current dose will continue. Hypercholesterolemia 136 36138 E78.0 LDL at goal and current dose well tolerated. Continue current regimen. Arrange lab work at f/u. [id number] Chuck Alejandre MD Main Office [address] [facility] [address] [place] [address] 04/14/2016 14:29:11 04/14/2016 15:15:19 Essential hypertension 27121728 I10 Well controlled and regimen tolerated. Continue as is. Panic attack 289207732 F 41.0 Much improved on SSRI. Continue current dose. Hypercholesterolemia 136 54792 E78.0 LDL at goal and current dose well tolerated. Continue current regimen. Gastroesop hageal reflux disease 409190575 K21.9 Symptoms well controlled without warning signs. Following with GI. Continue current regimen. [id number] Chuck Alejandre MD Main Office [address] [facility] [address] [place] [address] 08/17/2016 13:43:51 08/17/2016 14:46:08 Adult health examination 293873174 Z00.00 Will update immunizati on status, screening utd based on risk factors. Colon cancer screening current. Regular dental and ophtho care advised as well as sunscreen, seat belt and helmet use. Distracted driving and advance directives discussed. Needs infl uenza immunization 132770116 Z23 Body mass index 25-29 - overweight 426971033 E66.3 Hypercholesterolemia 136 85564 E78.01 LDL at goal and current dose well tolerated. Continue current regimen. Generalize d anxiety disorder 05187926 F41.1 Well controlled on current dose will continue. Gastroesop hageal reflux disease 001231203 K21.9 Symptoms well controlled without warning signs. Following with GI. Continue current regimen. Hypertensive disorder 38 770446 I10 Cough 86466122 R05 ?ACEI related. Will call if persistent /worse to switch to ARB. Acquired h allux valgus 42014886 M20.11 Call for podiatry referral if persistent /worse. [id number] Chuck Alejandre MD Main Office [address] [facility] [address] [place] [address] 02/15/2017 12:43:03 02/15/2017 13:18:49 Essential hypertension 80765107 I10 Well controlled and regimen tolerated. Continue as is. Gastroesop hageal reflux disease 418796745 K21.9 Symptoms well controlled without warning signs. Following with GI. Continue current regimen. Generalize d anxiety disorder 44428995 F41.1 Well controlled on current dose and well tolerated, will continue. Hypercholesterolemia 136 45196 E78.01 LDL just above goal and current dose well tolerated. Continue current regimen. Reassess before next appt. [id number] Chuck Alejandre MD Main Office [address] [facility] [address] [place] [address] 10/11/2017 09:33:56 10/11/2017 10:52:52 Adult health examination 838246196 Z00.00 Will get flu shot from work/pharm acy, screening utd based on risk factors. Colon cancer screening current. Regular dental and ophtho care advised as well as sunscreen, seat belt and helmet use. Distracted driving and advance directives discussed. Body mass index 25-29 - overweight 505857731 E66.3 Hypercholesterolemia 136 30832 E78.01 LDL just above goal and current dose well tolerated. Continue current regimen. Gastroesop hageal reflux disease 117241099 K21.9 Symptoms well controlled without warning signs. Following with GI. Continue current regimen. Backache w ith radiating pain 351742350 M54.9 Having mild neuritis symptoms. Pt advised to call if worse or new symptoms develop. Prolapsed lumbar intervertebral disc 075517139 M51.26 Lange's esophagus 3029 29285 K22.70 Due for f/u in 2019 unless symptoms develop. Malignant melanoma 20552 4006 C43.9 s/p excision. Will request derm notes. Hypertensive disorder 38 673004 I10 Fair control. Will continue current regimen. [id number] Chuck Alejandre MD Main Office [address] [facility] [address] [place] [address] 02/08/2018 08:42:24 02/08/2018 10:03:11 Essential hypertension 64674513 I10 Well controlled and regimen tolerated. Continue as is. Generalize d anxiety disorder 84489966 F41.1 Well controlled on current dose and well tolerated, will continue. Hypercholesterolemia 136 11217 E78.01 LDL just at goal and current dose well tolerated. Continue current regimen. Pain of claire int of ankle and/or foot 750547120 M25.571 Sound likely arthritic. Will start with plain imaging and refer to ortho for further eval/asses sment and treatment options. Gastroesop hageal reflux disease 549004327 K21.9 Symptoms well controlled without warning signs. Following with GI. Continue current regimen. [id number] Chuck Alejandre MD Main Office [address] [facility] [address] [place] [address] 07/12/2018 10:02:31 07/12/2018 11:10:40 Needs influenza immunization 054709478 Z23 Lumbar radiculopathy 128 116313 M54.16 Recurrent issue. Will reimplemen t conservati ve measures including home and formal PT. Adequate hydration advised. See if short course of steroid calms down pain/infla mmation. Advised to call with any weakness. Refer to PMR but would image if worse or alarm symptoms develop and refer to neurosurg. Lumbar dis c disorder with myelopathy 600534924 M51.06 [id number] Chuck Alejandre MD Main Office [address] [facility] [address] [facility] [address] 07/23/2018 15:21:24 07/23/2018 16:20:46 Lumbar radiculopathy 751823070 M54.16 Recurrent issue. Undergoing conservati ve measures currently including home and formal PT. Anticipate RTW for 08/06/2018. STD form completed/ updated. Advised to call with any weakness or other alarm symptoms. Has PMR f/u. Lumbar dis c disorder with myelopathy 708826222 M51.06 [id number] Chuck Alejandre MD Main Office [address] [facility] [address] [place] [address] 10/18/2018 13:33:37 10/18/2018 14:45:03 Adult health examination 181487951 Z00.00 Immunizati on status utd, will pursue Shingrix at local pharmacy. Due for colon cancer screening. Regular dental and ophtho care advised as well as sunscreen, seat belt and helmet use. Distracted driving and advance directives discussed. Screening for malignant neoplasm of colon 898154028 Z12.11 Body mass index 25-29 - overweight 917265277 E66.3 Hypercholesterolemia 136 29534 E78.01 LDL at goal, will reassess. Gastroesop hageal reflux disease 982404295 K21.9 Symptoms well controlled without warning signs, but remains PPI dependent with history of Lange's. Due for GI f/u. Continue current regimen. Prolapsed lumbar intervertebral disc 507561622 M51.26 Flares infrequent and no concerning symptoms. Will monitor. Lange's esophagus 3029 82093 K22.70 Due for f/u this year. Hypertensive disorder 38 321299 I10 Pain of left wrist 84806 13311 18776 M25.532 Suspect CTS. Will try splint and call if symptoms persist. Check EMG then. History of malignant melanoma of the skin 1214093589 08 Z85.820 s/p excision. Following with derm. Varicella vaccination 68 996432 Z23 [id number] Chuck Alejandre MD Main Office [address] [facility] [address] [facility] [address] 04/18/2019 15:14:47 04/18/2019 15:55:00 Hypercholesterolemia 76650744 E78.01 LDL at goal, on moderate dose statin. Will continue current regimen. Essential hypertension 65529918 I10 Well controlled and regimen tolerated. Continue as is. Generalize d anxiety disorder 11281808 F41.1 Well controlled on current SSRI dose and well tolerated, will continue. Gastroesop hageal reflux disease 047750208 K21.9 Symptoms well controlled without warning signs, but remains PPI dependent with history of Lange's. Has GI appt scheduled. [id number] Chuck Alejandre MD Main Office [address] [facility] [address] [place] [address] 05/09/2019 08:05:56 05/09/2019 08:50:24 History of malignant melanoma of the skin 5461289501 08 Z85.820 s/p excision. Following with derm. Has appt Jun 06, but will call to arrange something sooner. Localized swelling, mass and lump, neck 327870690 R22.1 Suspicious for lymphadeno karyn and without other symptoms to explain it and based on his history needs further characteri zation. Will start with u/s and expedite his derm f/u. [id number] Chuck Alejandre MD Main Office [address] [facility] [address] [place] [address] 06/19/2019 13:41:23 06/19/2019 14:54:21 Pre-surgery evaluation 614340596 Z01.818 EKG abnomal but appears unchanged from 2009 and [address]. Reviewed [address] Dr Alejandre and pt is ok for surgery. Pt does not have any exertional CP with 4 METs. Patient is at low risk for cardiopulm onary complicati ons with planned procedure based on comorbidit ies, good exertional tolerance and overall procedure risk. Patient advised to avoid aspirin and NSAIDS for 7 days prior. May proceed to scheduled surgery as planned. Cooney 0.1% Labs pending Needs infl uenza immunization 162855678 Z23 Electrocar diogram abnormal 392239661 R94.31 Patient with good exertional tolerance and no change in ECG from 2009 and on optimal medical management does not warrant further preoperati ve testing. Will consider further evaluation at follow up. [id number] Chuck Alejandre MD Main Office [address] [facility] [address] [place] [address] 08/15/2019 14:35:35 08/15/2019 15:39:18 Fever 267354128 R50.9 Fever management discussed. Other OTC supportive /symptomat ic tx advised. Call if not breaking or recurrent. Cough 26376797 R05 Influenza caused by Influenza A virus 582979751 J09.X2 antiviral therapy prescribed for positive rapid flu test. [id number] Chuck Alejandre MD Main Office [address] [facility] [address] [place] [address] 10/24/2019 13:57:09 10/24/2019 15:21:02 Adult health examination 129575863 Z00.00 Immunizati on status utd, will pursue Shingrix at local pharmacy. Due for colon cancer screening. Regular dental and ophtho care advised as well as sunscreen, and seat belt use. Distracted driving and advance directives discussed. Varicella vaccination 68 985194 Z23 Screening for malignant neoplasm of colon 837350876 Z12.11 Needs to reschedule with GI but being deferred with active immunother apy for melanoma. Malignant melanoma of skin 46149892 C43.9 Hypertensive disorder 38 307881 I10 Not at goal. Will titrate acei/diure tic combo dose. Advised to call with any problems. Body mass index 25-29 - overweight 249421682 E66.3 Z68.29 Hypercholesterolemia 136 90568 E78.01 LDL previously at goal, will reassess on moderate dose statin. Gastroesop hageal reflux disease 833084339 K21.9 Symptoms well controlled without warning signs, but remains PPI dependent with history of Lange's. Due for GI f/u. Continue current regimen. Prolapsed lumbar intervertebral disc 865824503 M51.26 Flares infrequent and no concerning symptoms. Will monitor. Lange's esophagus 3029 33778 K22.70 Overdue for f/u but alos on hold while undergoing melanome treatment. Atopic dermatitis 321282 01 L20.9 Call inb/worse. [id number] Chuck Alejandre MD Main Office [address] [facility] [address] [place] [address] 02/25/2020 12:42:09 02/25/2020 14:00:21 Hypercholesterolemia 89070694 E78.01 LDL previously at goal, will reassess on moderate dose statin. Generalize d anxiety disorder 12785554 F41.1 Well controlled on current SSRI dose and well tolerated, will continue. Advised to call Hypertensive disorder 38 171342 I10 Well controlled , continue current regimen. Essential hypertension 67747194 I10 Well controlled and regimen tolerated. Continue as is. Metastatic malignant neoplasm to liver 95417038 C78.7 Pt notified of PET scan report showing possible liver, bone and lung mets. Liver biopsy result pending. Will contact Dr. Kyle to see what needs to be done next. [id number] Chuck Alejandre MD Telehealt h [address] [facility] [address] [place] [address] 05/28/2020 08:04:39 05/29/2020 10:24:44 Epigastric pain 23182350 R10.13 after thoroughly reviewing his recent hospital admissions and discussing c pt about his precipitat ing symptoms that sent him to the ER - it appears that the severity of the epigastric pain (p drinking etoh the night before) made him feel vasovagal / presyncopa l he has a h/o lange's esophagus --- so I believe he has an ulcer --- advised him to increase his ppi to bid ac meals, and consider prn pepcid as well advised him to call his gi to make an apptmt in 7-10 days -- he has an apptmt already c onc in 7 days - rec discuss is pt well enough to have an egd for further evaluation (r/o PUD, surveillan ce/advance ment of lange's, h.pylori, esophageal /gastric ca) , he does have a h/o colon polyp so needs surveillan ce colonoscop y too but he may not be up for the bowel prep based on his current clinical condition - further d/w onc & gi Lange's esophagus 3023 48174 K22.70 see above *will fwd this note to gi* Malignant melanoma of skin 65905543 C43.9 see above, cont meds as per onc *will fwd this note to onc* Metastatic malignant neoplasm to liver 81935149 C78.7 pt states he is stopping etoh (he felt worse after drinking etoh the night before) Gastroesop hageal reflux disease 116226306 K21.9 htbn as well as globus & epi pain - see above re: ppi bid [id number] Chuck Alejandre MD Main Office [address] [facility] [address] [place] [address] 11/03/2020 14:04:19 11/03/2020 15:13:57 Pulmonary embolism 80407779 I26.99 No dyspnea with O2 sat normal. Continue enoxaparin . Metastatic malignant melanoma 564054953 C79.9 Scheduled for additional therapy next week. Depending on response may be able to enroll in clinical trial in [place]. Following with onc and GI for recurrent ascites. Hyponatremia 04793517 E8 7.1 Likely from fluid shifts from paracentes is. Had labs this AM, which showed resolution . Primary ba cterial peritonitis 87579936 K65.2 s/p 7 days of therapy. Asymptomat ic. Advance di rective discussed with patient 296812911 Z71.89 MOLST form provided by Dr. Lewis, was completed in office today and scanned into chart. Essential hypertension 45540082 I10 Well controlled on lisinopril . Will continue current dose. Health Concerns Section Related Observation LastModified by Organization Detai ls LastModified Time None Recorded Concern Status LastModified by Organization Details LastModified Time None Recorded Advance Directives Directive Y: HCP/ -Thien Payers Insurance Date Sequence Insurance Name Policy Number Policy Barrientos Covered Member ID Barrientos Member ID Guarantor Name 01/25/2021 1 [facility] [place] [id number] 01 Cole Manuel Kaleb Aparicio [id number] Cole Aparicio Notes Date Note Type Note Provider Name and Address Organization Details Recorded Time 9 text/html Upper Respiratory SymptomsReported by PatientUpper Respiratory SymptomsFor quality, patient reportshacking coughanddry cough. For associated symptoms, patient reportsfatigue,fever, andsore throatbut reportsno sputum production,no shortness of breath, andno wheezing. For location, patient reportshead,chest, andthroat. For context, patient reportsno sick contacts,no foreign travel, andnon-smoker.Just started immunotherapy for metastatic melanoma. Chuck Alejandre MD [address], [address], [facility] 09/08/2019 17:30:37 0 text/html Generic HPI TemplateReported by Patient Chuck Alejandre MD [address], [address], [facility] 10/24/2019 15:23:05 0 text/html HyperlipidemiaReported by PatientHPIFor type of hyperlipidemia, patient reportscombined. For control, patient reportsusually well controlledandat goal. For current therapy, patient reportscurrently taking: (rosuvastatin),last cholesterol level: (216),last ldl level: (107),last triglyceride level: (238), andlast hdl level: (61). For compliance, patient reportscompliant,compliant with diet, andexercises. For complications, patient reportsno coronary artery disease,no peripheral artery disease, andno cardiovascular disease. Hypertension F/UReported by PatientHPIFor associated symptoms, patient reportsno dizziness,no lightheadedness,no chest pain,no shortness of breath,no palpitations, andno edema. For lifestyle, patient reportsregular exerciseandlimiting/avoidin g salt. For medications, patient reportstaking medications as directedandno side effects from medication. GERD RefluxReported by PatientHPIFor symptoms, patient reportsasymptomatic,no difficulty swallowing,no pain swallowing, andno postprandial pain. For severity, patient reportssame. For duration, patient reportspresent 1-4 years. For context, patient reportsnon-smoker. For associated symptoms, patient reportsno frequent coughing.Has tried weaning PPI but symptoms return. Anxiety/DepressionReported by PatientHPIFor quality, patient reportssymptoms improved. For severity, patient reportsable to maintain relationships. For associated symptoms, patient reportsdenies homicidal ideations.Not using benzo at all. Feels that SSRI significantly helping him cope with work/life stress. Pt saught evaluation for abdominal pain via GI earlier this month. Imaging was done and lesion noted on liver that prompted oncology f/u given his melanoma history. PET scan was done yesterday, liver lesion biopsy on 02/19. Pt feels fine. Chuck Alejandre MD [address] [facility] [address], [place], [address], [facility] 02/25/2020 13:34:29 0 text/html Patient [place] [facility] [place] due to severe, right-sided abdominal pain, which started while he was doing yardwork. He later felt clammy, lightheaded, and had palpitations.He was treated at ER x 2 weeks prior for constipation. Medication changes were made. Med list reconciled. rev recent onc & gi notes, as well as last egd/colon 7.14 Earl Molina PA-C [address], [place], [address], [facility] 05/28/2020 10:58:36 1 text/html Hypertension F/UReported by PatientAmlodipine stopped. Was restarted on lisinopril during his hospital stay. Had labs done this AM for Dr. Kyle. Hospitalization Contact RecordReported by PatientHospitalization Contact RecordFor follow up, [facility],admit date: (please enter in format 'mm/dd/yyyy') (10/21/2020),date of discharge: (please enter in format 'mm/dd/yyyy') (10/29/2020), anddate of contact: (please enter in format 'mm/dd/yyyy') (11/03/2020).Patient with therapy resistent metastatic melanoma. Hospitalized [place] [facility] [place]. Hospital course complicated by Staph Aureus peritonitis, anemia, hyponatremia, PE and intrahepatic hemorrhage. Required transfusion of PRBC's following paracentesis. Required IR embolization of hemorrhagic liver lesion. CT showed progressive metastatic disease. Chuck Alejandre MD [address] [facility] [address], [place], [address], [facility] 11/05/2020 07:33:42
[2025-07-02 06:32] LABS: MANUAL DIFF FLAG NO
[2025-07-02 07:28] LABS: Hematocrit 50.7 % (42.0-52.0); Hemoglobin 17.5 g/dl (14.0-18.0); Imm Gran Abs Auto 0.01 X10*3/uL (0.00-0.03); Imm Gran Pct Auto 0.1 % (0.0-0.4); Lymphocytes Absolute Auto 2.2 X10*3/uL (1.2-4.9); Mean Corpuscular HGB Conc 34.5 g/dl (31.0-36.0); Mean Corpuscular Hemoglobin 33.0 pg (27.0-33.0); Mean Corpuscular Volume 95.7 fL (80.0-98.0); NRBC Abs Auto 0.000 X10*3/uL (0.0-0.012); NRBC Pct Auto 0.0 /100WBC (0.0-0.2); Platelet Count 304 X10*3/uL (160-400); Red Blood Count 5.30 X10*6/uL (4.60-5.80); White Blood Count 6.7 X10*3/uL (4.8-10.8)
[2025-07-02 08:07] LABS: Appearance Urine Clear; Glucose Urine UA Negative (Negative); PH 5.5 (5.0-9.0); Specific Gravity - Urine 1.015 (1.005-1.025)
[2025-07-02 08:30] LABS: Alanine Aminotransferase 40 U/L (0-40); Albumin Level 4.8 g/dL (3.5-5.0); Alkaline Phosphatase 92 U/L (39-117); Anion Gap 11 (12-20); Aspartate Amino Transferase 33 U/L (5-37); Blood Urea Nitrogen 16 mg/dL (9-16); Calcium 9.2 mg/dL (8.4-10.2); Carbon Dioxide 27 mmol/L (22-29); Chloride 106 mmol/L (96-108); Cholesterol 208 mg/dL (<200); Estimated Glomerular Filt Rate > 60; HDL Cholesterol 49 mg/dL (>40); Potassium 4.3 mmol/L (3.3-5.1); Sodium 140 mmol/L (135-145); Total Protein 8.3 g/dL (6.5-8.0); Triglycerides 124 mg/dL (<150)
== END 2025-07-02 06:22 | disposition home or self-care (01) ==
LOC: HO.LAB 06:21
DX: I10 Essential (primary) hypertension (principal); N52.8 Other male erectile dysfunction; R74.8 Abnormal levels of other serum enzymes; E66.09 Other obesity due to excess calories; Z68.35 Body mass index [BMI] 35.0-35.9, adult; E78.9 Disorder of lipoprotein metabolism, unspecified; R73.09 Other abnormal glucose; S46.012D Strain of muscle(s) and tendon(s) of the rotator cuff of left shoulder, subsequent encounter; X58.XXXD Exposure to other specified factors, subsequent encounter
CPT/HCPCS: 36415; 80053; 80061; 81003; 82306; 84443; 85025

== ENCOUNTER 2025-07-03 09:43 | Outpatient (AMB) | payer MEDICARE, SELFPAY ==
[2025-07-03 09:51] VITALS: BP 130/70; PULSE 76; RESP 18; TEMP 36.3; O2SAT 97; BMI 33.0
--- NOTE | 2025-07-03 09:51 | MHC.PC.OV ---
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 Mending Required: No Accompanied by: Self / Same As Patient Allergies No Known Allergies Allergy (Mild, Verified 07/03/25 10:11) NOT APPLICABLE Medication List - Last Reconciled 07/03/25 by SARAVANAN Baig blood pressure monitor As directed lisinopril 5 mg PO DAILY 90 days rosuvastatin 5 mg PO DAILY tadalafil 20 mg PO DAILY PRN 15 days Tobacco use date assessed: 04/02/25 Dental Screening Dental Screen Date: 07/03/25 Did you have a dental visit in the last 12 months?: Yes Did you have a dental problem in the last 6 months where you did not have access to dental care?: No Was dental information given to patient?: Patient has dentist HPI hld/htn HPI Details The patient is a 59-year-old male presenting for follow-up and management of chronic conditions. He has a history of hypertension and did not start his blood pressure medication that was ordered. The patient also has a history of hyperlipidemia, with recent labs showing mild elevated total cholesterol and LDL, though his triglycerides have improved. A hepatic ultrasound performed last year revealed hepatic steatosis. He reports intermittent pain in his rib cage area, which may be related to a previous skiing accident awhile ago, noting it occurs occasionally when he rolls over in bed. The patient has recently lost 8 pounds through lifestyle modifications. Dietary changes include eating more fruits, vegetables, chicken, and fish, while reducing bread and red meat intake. He reports consuming 4-5 eggs per week, sometimes in a sandwich with cheese and processed ham. The patient was started on cholesterol medication on his previous visit but has not started medication. [facility] Medical History History of diverticulitis Elevated cholesterol Surgical History Hx of rectal polypectomy History of repair of left rotator cuff History of nasal surgery Hx of colonoscopy History of total right hip replacement Family History Father Colon cancer CVD (cardiovascular disease) Myocardial infarction S/P triple vessel bypass Prostate cancer Mother History of breast cancer Brother Myocardial infarction Social History Housing: House Alcohol intake: current Alcohol intake frequency: a few times a week Alcohol type: beer Patient Tobacco Use Status: Never used Tobacco e-Cigarette/Vaping Use: Never Used service: No Current occupational status: employed Cognitive needs: No Hearing needs: No Vision needs: No Questionnaire PHQ-9 Over the last 2 weeks, how often have you been bothered by any of the following problems? Depression Screening Interpretation: Negative Depression Screening Done: Yes Source: Developed by Drs. Jude Serrato, Ida Vela, Akira Pickens and colleagues, with an educational belle from [email or web address]. Thrive Questionnaire Date Thrive assessed: 01/01/25 I am a: Patient What is your living situation today?: I have a steady place to live Within the past 12 months, did the food you bought not last and you didn't have the money to get more?: Never true Within the past 12 months, did you worry whether your food would run out before you got money to buy more?: Never true Do you have trouble paying for medicines?: No Do you have trouble getting transportation to medical appointments?: No Do you have trouble paying your heating and electricity bill?: No Do you have trouble taking care of your child, family member or friend?: No Do you have trouble with day-to-day activities such as bathing, preparing meals, shopping, managing finances, etc.?: No Are you currently unemployed and looking for a job?: No Are you interested in more education?: No Please select the resources that you would like help with: None Currently or been in a relationship where the following occur: No concerns reported THRIVE Score: 0 CHANG-7 AMB Questionnaire CHANG-7 Date CHANG - 7 assessed: 04/02/25 Source: Developed by Drs. Jude Serrato, Ida Vela, Akira Pickens and colleagues, with an educational belle from [email or web address]. Review of Systems Const Denies body aches, Denies chills, Denies fever(s), Denies headache(s) and Denies poor appetite Eyes Reports no additional complaints ENT Denies dysphagia, Denies dizziness, Denies headache(s) and Denies odynophagia Card Denies chest pain, Denies syncope, Denies edema, Denies irregular heart rhythm, Denies lightheadedness and Denies dyspnea Resp Denies cough and Denies dyspnea GI Denies abdominal pain, Denies constipation, Denies dysphagia, Denies diarrhea, Denies nausea, Denies odynophagia and Denies vomiting Reports no additional complaints Musc Reports no additional complaints, Denies abnormal gait and Reports other (right side of ribcage when he flexes in certain position) Skin/Breast Reports system reviewed and no additional complaints, except as documented Neuro Denies abnormal gait, Denies dizziness, Denies syncope and Denies headache(s) Psych Reports no additional complaints Physical exam (Primary Care) Vital Signs: Last Vital Signs Temp 97.3 F 07/03/25 09:51 Pulse 76 07/03/25 09:51 Resp 18 07/03/25 09:51 BP 134/76 07/03/25 10:13 Pulse Ox 97 07/03/25 09:51 Oxygen Delivery Method Room Air 07/03/25 09:51 BMI result Body Mass Index 33.0 Tobacco/Smoking Status: Tobacco use Status Tobacco use date assessed 04/02/25 07/03/25 09:53 Patient Tobacco Use Status Never used Tobacco 07/03/25 09:53 e-Cigarette/Vaping Use Never Used 07/03/25 09:53 Depression Screening Interpretation: Negative Thrive Assessment: Date of Thrive Assessment Date Thrive assessed 01/01/25 07/03/25 09:53 Currently or been in a relationship where the following occur: No concerns reported Const General: cooperative, healthy appearing, comfortable and no acute distress Orientation/consciousness: patient oriented x3 HENMT Head: Yes normocephalic Ears: hearing grossly normal bilaterally General nose exam: Normal external nose present Eyes General: appearance normal, both eyes and all related structures Conjunctivae: conjunctivae normal Neck Neck: Yes full ROM and Yes no lymphadenopathy Chest Chest palpation & inspection: no tenderness Resp Effort & Inspection: normal respiratory effort Auscultation: clear to auscultation bilaterally, no crackles, no rales, no rhonchi and no wheezes Cardio Rate: regular rate Rhythm: regular rhythm Skin General skin exam: no rashes or lesions noted Neuro General: patient oriented x3 Gait exam (Neuro): Normal gait present Extrem General: Yes normal to inspection, Yes full ROM and No edema Psych Affect: normal affect Attitude: cooperative Insight: Good insight present (Psych) Judgement: Good judgement present (Psych) Results Reviewed Results Reviewed: Laboratory Tests 07/02/25 07/02/25 06:25 06:30 WBC 6.7 RBC 5.30 Hgb 17.5 Hct 50.7 MCV 95.7 MCH 33.0 MCHC 34.5 RDW 12.2 Plt Count 304 Sodium 140 Potassium 4.3 Chloride 106 Carbon Dioxide 27 Anion Gap 11 L BUN 16 Creatinine 0.98 Estimated GFR > 60 Fasting Glucose 98 Calcium 9.2 Total Bilirubin 0.5 AST 33 ALT 40 Alkaline Phosphatase 92 Total Protein 8.3 H Albumin 4.8 Triglycerides 124 Cholesterol 208 H LDL Cholesterol, Calc 135 H HDL Cholesterol 49 25-OH Vitamin D Total 36.3 TSH 3.70 Urine Color Yellow Urine Appearance Clear Urine pH 5.5 Ur Specific Patterson 1.015 Urine Protein Negative Urine Glucose (UA) Negative Urine Ketones Negative Urine Blood Negative Urine Nitrite Negative Ur Leukocyte Esterase Negative Coding Level of Care Code Est Pt Level 3 (12526) Diagnoses Primary hypertension I10 Hypertension type: primary hypertension Elevated liver enzymes R74.8 Class 2 obesity due to excess calories without serious comorbidity with body mass index (BMI) of 35.0 to 35.9 in adult E66.09; Z68.35 Body mass index: BMI 35.0-35.9 Obesity classification: adult class 2 (BMI 35 - 39.9) Obesity type: due to excess calories Serious obesity comorbidity presence: without serious comorbidity Pure hypercholesterolemia E78.00 Hyperlipidemia type: pure hypercholesterolemia Other male erectile dysfunction N52.8 Erectile dysfunction type: due to other cause Impaired fasting glucose R73.01 Right-sided chest wall pain R07.89 Time Spent (min) 34 Assessment & Plan Assessment & Plan (1) HTN (hypertension): Code(s): I10 - Essential (primary) hypertension Category: Medical Qualifiers: Hypertension type: primary hypertension Qualified Code(s): I10 - Essential (primary) hypertension Plan: Blood pressure 134/76 goal systolic less than 130 mmhg Patient has been reluctant to take ordered lisinopril 5 mg and has been trying lifestyle modifications He was again encouraged to take lisinopril 5 mg daily. Reinforced low-salt diet (2) Elevated liver enzymes: Code(s): R74.8 - Abnormal levels of other serum enzymes Category: Medical Plan: Liver enzymes continues to be normal. Encouraged limiting alcohol, drugs containing Tylenol or acetaminophen and fatty foods intake We will continue to monitor (3) Obese: Code(s): E66.9 - Obesity, unspecified Category: Medical Qualifiers: Body mass index: BMI 35.0-35.9 Obesity classification: adult class 2 (BMI 35 - 39.9) Obesity type: due to excess calories Serious obesity comorbidity presence: without serious comorbidity Qualified Code(s): E66.09 - Other obesity due to excess calories; Z68.35 - Body mass index [BMI] 35.0-35.9, adult Plan: Encouraged to exercise for at least 30 minutes a day/5 days a week Healthy eating discussed. Encouraged to eat fruits/vegetables, protein-fish/baked chicken, and to avoid salty/fried foods, sweets, caffeine and carbohydrates. Encouraged to increase water intake 6-8 glasses a day (4) HLD (hyperlipidemia): Code(s): E78.5 - Hyperlipidemia, unspecified Category: Medical Qualifiers: Hyperlipidemia type: pure hypercholesterolemia Qualified Code(s): E78.00 - Pure hypercholesterolemia, unspecified Plan: Recent lab results indicate that while triglycerides have decreased, LDL cholesterol remains elevated, causing the total cholesterol to be over 200. The patient was counseled on dietary changes to lower LDL, including limiting intake of fried foods, egg yolks, dairy, processed meats such as ham, red meat, and shellfish. A handout with more detailed information will be provided. Will re-evaluate in three months. Patient has not started ordered rosuvastatin 5 mg, again encouraged the patient to start taking the medication We will recheck lipid panel in 3 months (5) Erectile dysfunction: Code(s): N52.9 - Male erectile dysfunction, unspecified Category: Medical Qualifiers: Erectile dysfunction type: due to other cause Qualified Code(s): N52.8 - Other male erectile dysfunction Plan: Continue tadalafil 20 mg daily p.r.n. Rx refilled (6) Impaired fasting glucose: Code(s): R73.01 - Impaired fasting glucose Category: Medical Plan: Fasting glucose this all has been slightly elevated. A1c 5.5% previous. Recent fasting glucose is normal at 98 Reinforced low sugar/carbohydrate diet We will continue to monitor fasting glucose (7) Right-sided chest wall pain: Code(s): R07.89 - Other chest pain Category: Medical Plan: The patient reports intermittent pain in the rib cage area, which is likely muscular and possibly related to an old skiing injury. Continue observation and lifestyle changes, as weight loss may help alleviate symptoms. Orders: Orders Comprehensive [place]. Panel Fast 3 Months E78.00 - Pure hypercholesterolemia, unspecified, I10 - Essential (primary) hypertension, R73.01 - Impaired fasting glucose, R74.8 - Abnormal levels of other serum enzymes UA CC w/rflx Micro + Cult 3 Months E78.00 - Pure hypercholesterolemia, unspecified, I10 - Essential (primary) hypertension, R73.01 - Impaired fasting glucose, R74.8 - Abnormal levels of other serum enzymes Hemoglobin A1c 3 Months R73.01 - Impaired fasting glucose Uric Acid 3 Months M79.674 - Pain in right toe(s) Lipid Panel 3 Months E78.00 - Pure hypercholesterolemia, unspecified, I10 - Essential (primary) hypertension, R73.01 - Impaired fasting glucose, R74.8 - Abnormal levels of other serum enzymes Vitamin D 25-OH Total 3 Months E78.00 - Pure hypercholesterolemia, unspecified, I10 - Essential (primary) hypertension, R73.01 - Impaired fasting glucose, R74.8 - Abnormal levels of other serum enzymes TSH reflex Free T4 3 Months E78.00 - Pure hypercholesterolemia, unspecified, I10 - Essential (primary) hypertension, R73.01 - Impaired fasting glucose, R74.8 - Abnormal levels of other serum enzymes Medications: Refilled tadalafil administer approximately 30min before sexual activity; do not use more than 1 dose per 24hrs 20 mg PO DAILY PRN 7 tabs 4RF sexual activity 15 days N52.8 - Other male erectile dysfunction
[2025-07-03 10:13] VITALS: BP 134/76
--- OUTSIDE RECORDS SUMMARY | 2025-07-03 11:21 | XMS_ITS | Patient Health Record ---
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 Name Role Phone Samm Licona Primary Care Provider Unavailab Jude Calloway Unavailable [phone] Allergies No Known Allergies Reason For Referral No Information Immunizations Vaccine Route Administration Date Status Comme nts Influenza Unknown 06/23/2021 Administered Problems Problem Type SNOMED Code ICD Code Onset Dates Problem Status W/U Status Risk Notes Problem Screening for malignant neoplasm of colon (651657940) Encounter for screening for malignant neoplasm of colon (Z12.11) Active confirmed Problem Preprocedural examination (412067057023348) Preprocedural examination (Z01.818) Active confirmed Problem History of adenomatous polyp of colon (687408453) Hx of adenomatous colonic polyps (Z86.010) Active confirmed Problem Diverticulosis of colon (503267880) Diverticulosis of colon (K57.30) Active confirmed Plan Of Treatment Pending Test Test Name Order Date Pathology 02/09/2022 Future Test Test Name Order Date COLONOSCOPY 01/21/2015 COLONOSCOPY 11/10/2021 Insurance Providers Payer Name Payer Address Payer Phone Subscriber Number Group Number Insured Name Patient Relationship to Insured Coverage Start Date Coverage End Date [facility] [address] [place] [place] [phone] [id number] Self - patient is the insured Medical (General) History Medical History History ICD Code Denies [place],DM,CVA,Lung disease,renal dise ase Elevated cholesterol Diverticulitis in [...]
== END 2025-07-03 10:36 | disposition home or self-care (01) ==
LOC: HO.HMCH 09:43
DX: I10 Essential (primary) hypertension (principal); R74.8 Abnormal levels of other serum enzymes; E66.09 Other obesity due to excess calories; Z68.35 Body mass index [BMI] 35.0-35.9, adult; E78.00 Pure hypercholesterolemia, unspecified; N52.8 Other male erectile dysfunction; R73.01 Impaired fasting glucose; R07.89 Other chest pain

== ENCOUNTER → 2025-07-03 09:43 | Outpatient (BNVA) | payer MEDICARE, SELFPAY | PROVIDERS: PCP Physician Assistant | DX: I10 Essential (primary) hypertension (principal); E78.5 Hyperlipidemia, unspecified; R74.8 Abnormal levels of other serum enzymes; E78.00 Pure hypercholesterolemia, unspecified; R73.01 Impaired fasting glucose; N52.8 Other male erectile dysfunction; R07.89 Other chest pain; E66.09 Other obesity due to excess calories; Z68.35 Body mass index [BMI] 35.0-35.9, adult | CPT/HCPCS: 99212 ==